=== PATIENT | female | born 1935 | race Caucasian/White ===

== ENCOUNTER → 2016-10-25 13:56 | Outpatient (CLI) | payer MEDICARE ==
[2015-07-25 08:46] VITALS: BMI 34.5
[~2016-10-25 13:56] MED LIST: BAYER CHEWABLE81 MG PO; BRILINTA90 MG PO; CEFTIN250 MG PO; ELAVIL10 MG PO; GLUCOPHAGE500 MG PO; HUMALOG 30100 UNITS/ SC; LANTUS INSULIN10 ML SC; LANTUS SOL100 UNIT/1 SQ; MELATONIN 3 MG1 TAB PO; PROTONIX40 MG PO; SYMLINPEN1000 MCG/M SQ; TENORMIN50 MG PO; TIROSINT75 MCG PO; TRAZODONE HCL50 MG PO; VERELAN180 MG PO; VICTOZA0.6 MG/0.1 SQ; ZOCOR40 MG PO
== END | disposition home or self-care (01) ==
LOC: D.LABREF 13:56
DX: R19.7 Diarrhea, unspecified (principal)

== ENCOUNTER 2017-03-11 08:58 | Outpatient (CLI) | payer MEDICARE ==
[~2017-03-11] VITALS: Ht 157.5 cm; Wt 86.4 kg
--- NOTE | ~2017-03-11 | HEMODYNAMI ---
PATIENT:MAXIMO TIPTON SEPTEMBER MEDICAL RECORD: [id number] : 37 LOCATION:D.CAT ADMISSION DATE: 03/11/17 Generatedon:03/11/201712:20 Patient name: MAXIMO TIPTON Patient #: [id number] SSN: : 1935 Date of study: 03/11/2017 Page: Of Hemodynamic Procedure Report Patient Data Patient Demographics Procedure consent was obtained First Name: MAXIMO Gender: Female Last Name: DANUTA : 1935 Middle Initial: SEPTEMBER Age: 81 year(s) Patient #: [id number] Race: Additional ID: [id number] Contact details [address]: [address] [place] [address] State: [place] City: [place] Zip code: [address] Past Medical History Allergies Allergen Reaction Date Comments Reported Other allergy 07/25/2015 Keven Inhibitors Sulfa drugs 07/25/2015 Penicillins 07/25/2015 Penicillins 03/11/2017 Sulfa drugs 03/11/2017 Admission Admission Data Admission Date: 03/11/2017 Admission Time: 8:58 Procedure Procedure Types Cath Procedure Diagnostic Procedure [facility] w/Coronaries López Insertion PCI Procedure AMI/SVG/ADMINISTRATIVE OFFICE ASSISTANT PTCA or Stent AMI-BMS/MILLER Initial Miscellaneous Procedures Moderate Sedation up to 30 minutes Procedure Description Procedure Date Procedure Date: 03/11/2017 Procedure Start Time: 11:46 Procedure End Time: 12:10 Procedure Staff Name Function Zamzam Samuels RT Monitor German Chaparro RT Scrub Luis Schaffer RN Nurse Tariq Buenrostro MD Performing Physician Franklin Peoples RT Overhead Crane Truck Loader Procedure Data Cath Procedure Fluoroscopy Diagnostic fluoroscopy Total fluoroscopy Time: 1.8 time: 1.8 min min Diagnostic fluoroscopy Total fluoroscopy dose: 711 dose: 711 mGy mGy Contrast Material Contrast Material Type Amount (ml) Isovue 300 102 Entry Location Entry Primary Successful Side Size Upsize Upsize Entry Closure Succes sful Closure Location (Fr) 1 (Fr) 2 (Fr) Remarks Device Remarks Femoral Right 6 Fr Exoseal artery Short Estimated blood loss: 10 ml Diagnostic catheters Device Type Used For End Catheter Placement Cordis 5Fr Pigtail LV Angiography Catheter (MP) Diagnostic Infinity 5Fr Left Coronary JL 3.5 catheter Angiography Cordis 5Fr 3DRC Catheter Right Coronary (MP) Angiography Procedure Complications No complications Procedure Medications Medication Administration Route Dosage Oxygen NC 2 l/min Heparin Flush Bag added to field 2 bags (1000units/500ml NS) 0.9% NaCl I.V. 100 ml/hr Fentanyl I.V. 50 mcg Versed I.V. 1 mg Benadryl I.V. 50 mg Heparin Bolus I.V. 4000 units Integrilin (Bolus I.V. 7.9 ml 2mg/ml) Integrilin (Bolus wasted 2.1 ml 2mg/ml) Plavix P.O. 600 mg Hemodynamics Rest Heart Rate: 78 (bpm) Snapshots Pre Cath Intra NCS Post Cath Vital Signs Time Heart Resp SPO2 etCO2 NIBP (mmHg) Rhythm Pain Sedation Rate (ipm) (%) (mmHg) Status Level (bpm) 11:37:46 78 16 99 0 187/85(138) NSR 0 (11) 10(A) , No pain 11:42:45 76 16 100 22.6 188/83(144) NSR 0 (11) 10(A) , No pain 11:47:42 81 16 97 0 164/68(122) NSR 0 (11) 9(A) , No pain 11:52:35 85 16 94 3.7 168/81(120) NSR 0 (11) 9(A) , No pain 11:57:30 98 18 95 13.5 176/81(128) NSR 0 (11) 9(A) , No pain 12:03:35 118 18 98 27.1 92/40(65) NSR 0 (11) 9(A) , No pain 12:08:34 105 12 99 32.4 Measuring NSR 0 (11) 9(A) , No pain 12:09:39 110 21 97 30.9 198/107(151) NSR 0 (11) 9(A) , No pain Medications Time Medication Route Dose Verified Delivered Reason Notes Effectiveness by by 11:43:04 Oxygen NC 2 Tariq Smith Per physician l/min Chitra Schaffer RN 11:43:14 Heparin Flush added 2 Tariq Luis used for Bag to bags Chitra Schaffer RN procedure (1000units/500ml field NS) 11:43:22 0.9% NaCl I.V. 100 Tariq Smith Per physician ml/hr Chitra Schaffer RN 11:43:31 Fentanyl I.V. 50 Tariq Vargasy for sedation mcg Chitra Schaffer RN 11:43:37 Versed I.V. 1 mg Tariq Smith for sedation Chitra Schaffer RN 11:43:44 Benadryl I.V. 50 mg Tariq Smith for sedation Chitra Schaffer RN 11:53:01 Heparin Bolus I.V. 4000 Tariq Smith for units Chitra Schaffer RN anticoagulation 11:55:22 Integrilin I.V. 7.9 Tariq Smith for (Bolus 2mg/ml) ml Chitra Schaffer RN anticoagulation 11:55:36 Integrilin wasted 2.1 Tariq Smith for (Bolus 2mg/ml) ml Chitra Schaffer RN anticoagulation 11:57:55 Plavix P.O. 600 Tariq Smith for mg Chitra Schaffer RN antiplatelet therapy Procedure Log Time Note 11:20:46 Zamzam Counts RT(R) sent for patient. Start room use. 11:20:47 Time tracking: Regular hours 11:20:52 Plan of Care:Hemodynamics will remain stable., Cardiac rhythm will remain stable., Comfort level will be maintained., Respiratory function will remain adequate., Patient/ family verbilizes understanding of procedure., Procedure tolerated without complication., Recovers from procedure without complications.. 11:25:28 Use device set Femoral Dx 11:25:29 Bag Decanter opened to sterile field. 11:25:29 Acist Syringe opened to sterile field. 11:25:30 Medline Cath Pack opened to sterile field. 11:25:31 St Liam 260cm J .035 wire opened to sterile field. 11:25:32 Acist Hand Control opened to sterile field. 11:25:33 Acist Manifold opened to sterile field. 11:25:37 Tegaderm 4 x 4 opened to sterile field. 11:25:37 Diagnostic Infinity 5Fr Multipack catheter opened to sterile field. 11:25:54 Terumo 6Fr Milford Sheath opened to sterile field. 11:32:02 Patient received from ED to CCL 1 Alert and oriented. Tansferred to table in Supine position. 11:32:04 Correct patient and procedure confirmed by team. 11:32:04 Warm blankets applied, and yobani hugger turned on for patient comfort. 11:32:05 Signed procedure consent form obtained from patient. 11:32:06 ECG and BP/O2 sat monitors applied to patient. 11:32:07 Full Disclosure recording started 11:35:50 Vital chart was started 11:38:53 Baseline sample Acquired. 11:38:56 Rhythm: sinus rhythm 11:39:00 H&P Date Dictated: 03/11/2017 Emergent; H&P N/A. 11:39:02 Pre-op teaching completed and patient verbalized understanding. 11:39:02 Pre-procedure instructions explained to patient. 11:39:08 Family in waiting room. 11:39:10 Patient NPO since Midnight. 11:39:19 Patient allergic to Penicillins 11:39:25 Patient allergic to Sulfa drugs 11:39:27 Is the patient allergic to Iodine/contrast media? No. 11:39:29 Is patient on blood thinner?No 11:40:13 Patient diabetic? No. 11:40:16 Previous problem with sedation/anesthesia? No ? 11:40:17 Snore? Yes 11:40:18 Sleep apnea? No 11:40:19 Deviated septum? No 11:40:20 Sticks out tongue? Yes 11:40:20 Opens mouth fully? Yes 11:40:22 Airway obstruction? Yes ? 11:40:24 Dentures? Yes ? 11:40:27 Pre procedure: right dorsailis pedis pulse 2+ Normal; easily identifiable; not easily obliterated 11:40:33 Patient pain scale 7/10 Chest. 11:41:01 IV patent on arrival in right hand with 0.9% NaCl at O. 11:41:08 Lab results completed and on chart. 11:42:49 Right groin area was prepped with chlora-prep and draped in sterile fashion 11:42:51 Sharps counted by scrub and verified by R.N. 11:42:51 Alarms reviewed by R. N. 11:42:54 Final Timeout: patient, procedure, and site verified with staff and physician. All members of the team are in agreement. 11:42:57 Right groin site verified by team. 11:43:00 Physical assessment completed. ASA score P 2 - A patient with mild systemic disease as per Tariq Buenrostro MD. 11:43:04 Sedation plan: IV Moderate Sedation Medication:Versed, Fentanyl 11:43:04 Oxygen 2 l/min NC was administered by Luis Schaffer RN; Per physician; 11:43:14 Heparin Flush Bag (1000units/500ml NS) 2 bags added to field was administered by Luis Schaffer RN; used for procedure; 11:43:22 0.9% NaCl 100 ml/hr I.V. was administered by Luis Schaffer RN; Per physician; 11:43:31 Fentanyl 50 mcg I.V. was administered by Luis Schaffer RN; for sedation; 11:43:37 Versed 1 mg I.V. was administered by Luis Schaffer RN; for sedation; 11:43:44 Benadryl 50 mg I.V. was administered by Luis Schaffer RN; for sedation; 11:44:12 Procedure started. 11:46:50 Local anesthetic to right femoral artery with Lidocaine 2% by Tariq Buenrostro MD.INITIAL ACCESS ONLY 11:47:02 A 6 Fr Short sheath was inserted into the Right Femoral artery 11:47:11 A Cordis 5Fr Pigtail Catheter (MP) was advanced over the wire and used for LV Angiography. 11:47:36 LV gram done using CAMERON 11:47:40 EF : 40 % 11:47:44 Injector settings: Ml/sec: 10, Volume: 20, 11:47:46 Catheter removed. 11:47:56 A Diagnostic Infinity 5Fr JL 3.5 catheter was advanced over the wire and used for Left Coronary Angiography. 11:48:35 Bare Tree Media BasixCompak Inflation Kit opened to sterile field. 11:48:35 Jones Whisper J 300cm 0.014 guide wire opened to sterile field. 11:49:19 Catheter removed. 11:49:34 A Cordis 5Fr 3DRC Catheter (MP) was advanced over the wire and used for Right Coronary Angiography. 11:50:22 Catheter removed. 11:50:33 Cordis 6FR XB 3.5 guide catheter opened to sterile field. 11:51:26 6 Fr XB 3.5 guide catheter was inserted over the wire 11:52:21 Whisper wire advanced. 11:53:01 Heparin Bolus 4000 units I.V. was administered by Luis Schaffer RN; for anticoagulation; 11:53:23 Inflation Number: 1 A Medtronic Integrity 3.0 X 15 stent was prepped and advanced across the Mid CX. The stent was deployed at 9 VANESSA for 0:03 (min:sec). 11:53:58 Wire removed. 11:53:58 Stent catheter was removed intact over wire. 11:54:00 Guide catheter removed. 11:54:11 Cordis 6Fr Exoseal opened to sterile field. 11:55:22 Integrilin (Bolus 2mg/ml) 7.9 ml I.V. was administered by Luis Schaffer RN; for anticoagulation; 11:55:36 Integrilin (Bolus 2mg/ml) 2.1 ml wasted was administered by Luis Schaffer RN; for anticoagulation; 11:56:20 Sheath removed intact; hemostasis achieved with Exoseal to the Right Femoral artery. 11:56:22 Procedure ended.(Physican Out) 11:57:55 Plavix 600 mg P.O. was administered by Luis Schaffer RN; for antiplatelet therapy; 11:58:02 Fluoroscopy time 01.80 minutes. 11:58:08 Fluoroscopy dose: 711 mGy 11:58:08 Flurop Dose total: 711 11:58:10 Contrast amount:Isovue 300 102ml. 11:58:19 Sharps counted by scrub and verified by R.N. 11:59:21 Insertion/operative site no bleeding no hematoma. 11:59:35 Post-op/insertion site Right Femoral artery dressed using a 4 x 4 and Tegaderm. 11:59:42 Post right femoral artery:stable, clean and dry 11:59:43 Post Procedure Pulses reassessed and unchanged 11:59:46 Post-procedure physical assessment completed. ASA score P 2 - A patient with mild systemic disease as per Tariq Buenrostro MD. 11:59:48 Post procedure rhythm: unchanged. 11:59:51 Estimated blood loss: 10 ml 11:59:52 Post procedure instruction explained to patient.Patient verbalizes understanding. 11:59:53 Patient needs reinforcement of post procedure teaching. 12:00:13 Procedure type changed to Cath procedure, Diagnostic procedure, LHC, LHC w/Coronaries, López Insertion, PCI procedure, AMI/SVG/ADMINISTRATIVE OFFICE ASSISTANT PTCA or Stent, AMI-BMS/MILLER Initial, Miscellaneous Procedures, Moderate Sedation up to 30 minutes 12:00:18 Procedure Complication : No complications 12:00:21 See physician's report for complete and final results. 12:00:52 PERCUTANEOUS ENTRY 19GA needle opened to sterile field. 12:01:02 IV Extension Set opened to sterile field. 12:01:18 Procedure and supply charges have been captured, reviewed, submitted and are correct. 12:04:32 16fr standard lópez inserted no resistance clear yellow urine obtained. 12:06:28 16FR López w/Drainage Bag opened to sterile field. 12:09:56 Vital chart was stopped 12:09:59 Report given to PCU. 12:10:04 Patient transfered to PCU with Bed. 12:10:11 Full Disclosure recording stopped 12:10:11 Procedure ended. 12:10:14 End room use (Document Last) 12:18:40 St Liam Femstop Arch Gold opened to sterile field. 12:18:51 Femstop placed over the right femoral artery at 180 mmHg. Hemostasis achieved. Intervention Summary Intervention Notes Time ActionType Lesion and Equipment Action# Pressure Duration Attributes Used 11:53:23 Place stent Mid CX Medtronic 1 9 00:03 Integrity 3.0 X 15 stent Device Usage Item Name Manufacture Quantity Catalog Hospital Part Current Minimal Lot# / Number Charge Number Stock Stock Serial# Code Acist Acist 1 89381 352080 794702 446258 20 Syringe Medical Systems Inc Bag Decanter Microtek 1 2002S 249549 54498 322857 5 OneSeed Expeditions. Medline Cath Cardinal 1 [id number] 144899 85196 225194 [address] Liam 1 470328 312563 476137 183456 30 260cm J .035 wire Acist Hand Acist 1 73763 384184 465445 295140 5 Control Medical Systems Inc Acist Acist 1 27953 470703 703288 147242 5 AltaRock [employer] Inc Diagnostic Cardinal 1 [id number] 759379 49777 846164 30 Infinity 5Fr Glide Pharma Multipack catheter Tegaderm 4 x 3M 1 1626W 930015 746208 972618 5 4 Terumo 6Fr Terumo 1 GET820 997533 824586 304371 40 Milford Sheath Cordis 5Fr Cardinal 1 090175 5 Pigtail Health Catheter (MP) Diagnostic Cardinal 1 [id number] 680987 271298 788267 5 Infinity 5Fr Health JL 3.5 catheter Jones Jones 1 [id number] 380380 556096 126813 5 Whisper J Vascular 300cm 0.014 guide wire Merit Merit 1 BG4998 206286 782955 668898 15 BasixCompak Medical Inflation Kit Cordis 5Fr Cardinal 1 988837 5 3DRC Health Catheter (MP) Cordis 6FR Cardinal 1 [id number] 242216 885521 465856 2 XB 3.5 guide Health catheter Medtronic Medtronic 1 [id number] 763999 990916 9 [id number] Integrity 3.0 X 15 stent Cordis 6Fr Cardinal 1 EX600 640260 502468 384837 10 Exoseal Health PERCUTANEOUS Cook Medical 1 S53374 248625 361661 5 ENTRY 19GA needle IV Extension Hospira 1 60290-26 459452 82441 913860 5 Set 16FR López Bard 1 [id number] 520157 073365 867998 5 w/Drainage Bag St Liam St Liam 1 F68951 118470 301126 767288 5 Femstop Arch Gold Signature Audit [place] Stage Time Signature Unsigned Intra-Procedure 03/11/2017 Zamzam Samuels 12:10:31 PM Counts RT(R) RT(R) 03/11/2017 12:18:20 PM Intra-Procedure 03/11/2017 Franklin Peoples 12:20:48 PM RT(R) Signatures Monitor : Zamzam Signature : Counts RT Date : Time : [facility] [address] [place], [place] [address]
[2017-03-11 09:52] LABS: BASOPHILS 0.5 % (0-2); EOSINOPHILS 3.7 % (0-7); HEMATOCRIT 43.1 % (36.0-48.0); HEMOGLOBIN 14.2 g/dL (12-16); IMMATURE GRANULOCYTES 0.2 % (0-5); LYMPHOCYTES 35.7 % (15-50); MCH 30.9 pg (26.0-34.0); MCHC 32.9 g/dL (31.0-37.0); MCV 93.7 fL (80.0-100.0); MEAN PLATELET VOLUME 10.5 fL (7.4-10.4); MONOCYTES 11.9 % (2-11); PLATELET COUNT 225 10x3/uL (130-400); RDW 12.8 % (11.5-14.5); WBC 8.4 10x3/uL (4.8-10.8)
[2017-03-11 09:53] LABS: APPEARANCE CLEAR (CLEAR); BILIRUBIN NEGATIVE (NEGATIVE); COLOR STRAW (YELLOW); GLUCOSE 50 mg/dL (NEGATIVE); KETONE NEGATIVE (NEGATIVE); NITRITE NEGATIVE (NEGATIVE); PROTEIN NEGATIVE (NEGATIVE); SPECIFIC GRAVITY 1.005 (1.005-1.020); UROBILINOGEN NORMAL (NORMAL)
[2017-03-11 10:55] LABS: ALBUMIN 3.6 g/dL (3.4-5.0); ALKALINE PHOSPHATASE 43 U/L (46-116); ALT (SGPT) 65 U/L (10-68); BILIRUBIN - TOTAL 0.57 mg/dL (0.2-1.3); CALC OSMOLALITY 284 mosm/kg (275-300); CALCIUM 9.3 mg/dL (8.5-10.1); CARBON DIOXIDE 26.5 mmol/L (21.0-32.0); CHLORIDE - SERUM 102 mmol/L (98-107); CREATININE - SERUM 0.9 mg/dL (0.6-1.3); POTASSIUM - SERUM 4.6 mmol/L (3.5-5.1); PROTEIN - SERUM 7.5 g/dL (6.4-8.2); SODIUM 141 mmol/L (136-145); UREA NITROGEN 11 mg/dL (7-18); eGFR NON AFRICAN AMERICAN 64 mL/min (90-120)
[2017-03-11 10:56] LABS: GLUCOSE 181 mg/dL (74-106)
[2017-03-11 11:09] LABS: CHOL - HDL RATIO 2.3 ratio (2.3-4.1); CHOLESTEROL, TOTAL 119 mg/dL (0-200); CKMB 0.9 U/L (0.0-3.6); CREATINE KINASE 55 UL (21-215); HDL CHOLESTEROL 52 mg/dL (32-96); LDL CHOLESTEROL 48 mg/dL (0-100); LDL-HDL RATIO 0.9 ratio (1.5-3.5); TRIGLYCERIDE 98 mg/dL (30-200)
[2017-03-11 11:10] LABS: TROPONIN-I < 0.017 ng/mL (0.000-0.060)
[2017-03-11 14:37] VITALS: BP 136/61; Ht 157.5 cm; Wt 86.4 kg
[2017-03-11 15:26] LABS: HEMATOCRIT 38.3 % (36.0-48.0); HEMOGLOBIN 12.9 g/dL (12-16)
[2017-03-11] MEDS ORDERED: PROTONIX40 MG PO (17:41)
[2017-03-11] MEDS ORDERED: CARAFATE1 G PO (17:42)
[2017-03-11] MEDS ORDERED: MOBIC7.5 MG PO (17:43)
[2017-03-11] MEDS ORDERED: MELATONIN5 M3 PO (17:50)
[2017-03-11] MEDS ORDERED: MULTIPLE VITAMI1 TA1 PO (18:10)
--- NOTE | 2017-03-11 19:35 | NUR ---
ASSESSMENT COMPLETE, A&O. RESPERTIONS EVEN ON AT 2 LITER VIA NC. IV TO LEFT FOREARM SL, SITE CLEAN AND DRY. DRSG TO RIGHT GROIN C/D/I. DRY BLOOD NOTED TO THIGH AND DRAW SHEET, WHICH IT WAS GIVEN IN REPORT FROM DAY SHIFT NURSE THAT PT HAD PREVIOUSLY HAD ON A FEMSTOP TO RIGHT GROIN DUE TO ACTIVE BLEEDING AFTER CARDIAC CATH. NO ACTIVE BLEEDING NOTED AT THIS TIME, NO SWELLING NOTED, PEDAL PULSES PRESENT. PT DENIES PAIN OR NEEDS, AT BED SIDE.
--- NOTE | 2017-03-11 21:33 | NUR ---
HS MEDS GIVEN WITH FRESH ICE WATER, BS 244, COVERGE GIVEN PER S/S. HS SNACK PROVIDED. PT DENIES PAIN OR NEEDS, BED LOW, CL IN REACH.
[2017-03-11 22:54] VITALS: BP 144/59
--- NOTE | 2017-03-12 | NUR ---
METER SHOP SUPERVISOR AT BED SIDE TO OBTAIN VITALS, WILL CONT TO MONITOR.
--- NOTE | 2017-03-12 02:57 | NUR ---
RESTING WITH EYES CLOSED, RESPERATIONS EVEN, NO S/S DISTRESS NOTED.
[2017-03-12 04:27] VITALS: BP 161/68
[2017-03-12 07:52] VITALS: BP 145/61
--- NOTE | 2017-03-12 09:37 | NUR ---
TELEMETRY SR. SMITH CATH INTACT AND PATENT. CALL LIGHT IN REACH. WILL CONT. PLAN OF CARE.
[2017-03-12 11:59] VITALS: BP 145/61
[2017-03-12] MEDS ORDERED: PLAVIX75 MG PO (12:20)
--- NOTE | 2017-03-12 13:00 | NUR ---
IV AND TELEMETRY DCD. DC PLANS GIVEN. UNDERSTANDING VOICED. ESCORTED TO CAR BY W/C.
--- NOTE | 2017-03-14 14:14 | HP ---
PATIENT: MAXIMO TIPTON BALJINDER MEDICAL RECORD: [id number] ACCOUNT: [id number] LOCATION:RICHARD : 37 ADMISSION DATE: 03/11/17 HISTORY AND PHYSICAL EXAMINATION DIAGNOSES: 1. Unstable angina. 2. Coronary artery disease. 3. Previous percutaneous transluminal coronary angioplasty stent. 4. Hypertension. 5. Insulin-dependent diabetes. HISTORY OF PRESENT ILLNESS: This is a lady who has had previous stents by Dr. Ceja approximately a year and a half ago, who has been having chest pain for the past 2 weeks in an increasing fashion, markedly increasing over the past 2 days. She is having active worsening chest pain now in the Emergency Room. Her EKG, however, has nonspecific ST-T abnormalities, no acute ST elevation. PHYSICAL EXAMINATION: GENERAL APPEARANCE: Well-nourished, well-developed, appears stated age. Level of distress, comfortable. PSYCHIATRIC: Mental status, alert, normal affect. Orientation, oriented to time, place and person. EYES: Lids and conjunctiva, noninjected. No discharge, no pallor. ENT: Lips, teeth, gums, normal dentition. Oropharynx, no cyanosis, no pallor. NECK: Carotid arteries, bilateral normal upstroke, no bruits, no thrills. JUGULAR VEINS: No jugular venous pressure or distention. CERVICAL LYMPH NODES: Nontender, nonenlarged. THYROID: Not enlarged. Nontender. No nodules. LUNGS: Respiratory effort, unlabored. CHEST: Normal curvature. No thoracic deformity. No chest wall tenderness. Percussion, resonant. Auscultation, clear. No wheezes, no rales, no rhonchi. CARDIOVASCULAR: Precordial exam, nondisplaced. No heaves or pericardial thrills. Rate and rhythm, regular. Heart sounds, normal S1, normal S2. No S3, no gallop, no rub. Systolic murmur, not heard. Diastolic murmur, not heard. EXTREMITIES: No cyanosis, no edema. Peripheral pulses, full and equal in all extremities, except as noted. No bruits appreciated. ABDOMEN: Soft, nondistended. Normal aorta. No bruit. Nontender. No masses. Liver, nontender, no hepatomegaly. Spleen, nontender, no splenomegaly. MUSCULOSKELETAL: No joint tenderness. No joint swelling. No erythema. NEUROLOGICAL: Normal gait, normal strength, normal tone. SKIN: Warm and dry. REVIEW OF SYSTEMS: The patient reports easy bruising but reports no swollen glands. The patient reports no fever, no night sweats, no significant weight gain, no significant weight loss. No significant exercise tolerance. The patient reports no dry eyes, no irritation, no vision change. Patient reports no difficulty hearing and no ear pain. Patient reports no frequent nose bleeds or nose and sinus problems. Patient reports on arm pain on exertion. No shortness of breath while lying down. No history of heart murmur. Patient reports no cough, no wheezing or coughing up blood. Patient reports no abdominal pain, no vomiting. Normal appetite. No diarrhea and not vomiting blood. No nausea and no constipation. Patient reports no incontinence. No difficulty urinating. No hematuria. No increased frequency. Patient reports no muscle aches. No weakness, no arthralgias, no back pain. No swelling of the HISTORY AND PHYSICAL [id number] MAXIMO TIPTON BALJINDER extremities. Patient reports no abnormal mole, no jaundice, no rashes. Reports no loss of consciousness. No weakness and no numbness. No seizures, dizziness, or headaches. The patient reports no depression, no sleep disturbance, feeling safe in a relationship and no alcohol abuse. Patient reports on fatigue. Reports no runny nose or sinus pressure. No itching, no hives, and no frequent sneezing. OVERALL IMPRESSION: Increasing angina in an unstable fashion. Most likely she has recurrent hemodynamically significant coronary artery disease. We will proceed with coronary angiography. Further care depends upon findings of the angiography. TRANSINT:[id number] Voice Confirmation ID: [id number] DOCUMENT ID: [id number] ILIANA JARAMILLO MD at 1414 CC: [id number] DICTATION DATE: 03/11/17 1113 RV DETAILER: 03/11/17 1144 DEP CLI 03/12/17 [facility] [address] [id number]
--- NOTE | 2017-03-14 14:14 | OP ---
PATIENT NAME: MAXIMO TIPTON MEDICAL RECORD: [id number] :37 LOCATION:D.CAT ADMISSION DATE: SURGEON: ILIANA JARAMILLO MD DATE OF OPERATION: 03/11/2017 PROCEDURES: 1. PTCA stent to left circumflex. 2. Left heart catheterization. 3. Selective coronary angiography. 4. Left ventriculogram. INDICATION: Angina and coronary artery disease. PROCEDURE IN DETAIL: After informed consent was obtained and after detailed explanation of risks, benefits as well as alternative therapies, the patient elected to proceed with angiogram and angioplasty. The right femoral area was prepped and draped in normal sterile fashion. The right femoral artery was cannulated via modified Seldinger technique with placement of 6-Nigerien sheath. All catheters exchanged through this sheath. FINDINGS: Left ventriculogram was performed in standard 30-degree CAMERON view, reveals global hypokinesis, ejection fraction 40%. SELECTIVE CORONARY ANGIOGRAPHY: 1. Left main showed no significant angiographic disease. 2. Left anterior descending has previously placed stents, these are widely patent; however, there is an area of 70% in-stent restenosis. After this, the vessel is very small caliber. There is a 90% stenosis that is questionable. This vessel is large enough to be stented. 3. Left circumflex has a 75% stenosis in the mid vessel. 4. The right coronary artery has previously placed stents. These are widely patent with no significant restenosis. No disease elsewise. PTCA STENT OF THE LEFT CIRCUMFLEX: The stent used was a 3.0 x 15 mm Integrity. Result was 0% residual stenosis. OVERALL IMPRESSION: Successful percutaneous transluminal coronary angioplasty stent of the left circumflex going from 75% initial stenosis to 0% residual. If the patient continues to have chest pain, would entertain PTCA stent of the small LAD. TRANSINT:[id number] Voice Confirmation ID: [id number] DOCUMENT ID: [id number] ILIANA JARAMILLO MD at 1414 CC: [id number] DICTATION DATE: 03/11/17 1203 GATE SERVICES SUPERVISOR: 03/11/17 1228 DEP CLI 03/12/17 [place] [address]
--- NOTE | 2017-03-14 14:14 | DS ---
PATIENT:MAXIMO WILSON SEPTEMBER :37 MEDICAL RECORD: [id number] DISCHARGE SUMMARY ADMISSION DATE: 03/11/17 DISCHARGE DATE: 03/12/17 DISCHARGE DIAGNOSES: 1. Unstable angina. 2. Coronary artery disease. 3. Percutaneous transluminal coronary angioplasty stent of left circumflex this admission. 4. Hypertension. 5. Hyperlipidemia. HOSPITAL COURSE: Mrs. Wilson presents with unstable anginal symptomatology, found to have significant disease to the left circumflex, underwent successful PTCA stent of the left circumflex, no further anginal symptomatology. She was discharged home with the addition of aspirin and Plavix to her medical regimen and follow up with [facility] in 1 month. TRANSINT:[id number] Voice Confirmation ID: [id number] DOCUMENT ID: [id number] ILIANA JARAMILLO MD at 1414 CC: [id number] DICTATION DATE: 03/12/17 1144 INTERVENTIONIST: 03/12/17 1313 DEP CLI 03/12/17 [address] [place] [address]
== END 2017-03-12 14:00 | disposition home or self-care (01) ==
LOC: D.M2 08:58 → D.ER 08:58 → D.CATH 08:58 → EDSTATUS 11:30 → D.M2 12:20 → D.CATH 03-12 14:00
PROVIDERS: Family Medicine; Internal Medicine Interventional Cardiology
DX: I25.110 Atherosclerotic heart disease of native coronary artery with unstable angina pectoris (principal); Z95.5 Presence of coronary angioplasty implant and graft; I10 Essential (primary) hypertension; E11.9 Type 2 diabetes mellitus without complications; E78.5 Hyperlipidemia, unspecified; Z01.812 Encounter for preprocedural laboratory examination

== ENCOUNTER 2017-08-09 18:31 | Observation (INO) | payer MEDICARE ==
[~2017-08-09] VITALS: Ht 157.5 cm; Wt 48.7 kg
--- NOTE | ~2017-08-09 | DS ---
PATIENT:MAXIMO TIPTON SEPTEMBER :37 MEDICAL RECORD: [id number] DISCHARGE SUMMARY ADMISSION DATE: 08/09/17 DISCHARGE DATE: 08/12/17 DISCHARGE DIAGNOSES: 1. Angina. 2. Coronary artery disease. 3. Percutaneous transluminal coronary angioplasty stent left anterior descending this admission. HOSPITAL COURSE: Mrs. TIPTON presents with unstable angina, found to have significant disease of the LAD, underwent successful PTCA stent of the LAD, was discharged home with the addition of aspirin and Plavix to her medical regimen. We will follow up with [facility] in 1 month. TRANSINT:[id number] Voice Confirmation ID: [id number] DOCUMENT ID: [id number] ILIANA JARAMILLO MD at 0956 CC: [id number] DICTATION DATE: 08/11/17 1145 FILLING ROOM OPERATOR: 08/11/17 1330 DIS IN 08/12/[address] [address]
--- NOTE | ~2017-08-09 | HEMODYNAMI ---
PATIENT:MAXIMO TIPTON SEPTEMBER MEDICAL RECORD: [id number] : 37 LOCATION:[address] ADMISSION DATE: 08/09/17 Generatedon:08/11/201711:50 Patient name: MAXIMO TIPTON Patient #: [id number] SSN: : 1935 Date of study: 08/11/2017 Page: Of Hemodynamic Procedure Report Patient Data Patient Demographics Procedure consent was obtained First Name: MAXIMO Gender: Female Last Name: DANUTA : 1935 Middle Initial: SEPTEMBER Age: 81 year(s) Patient #: [id number] Race: Additional ID: [id number] Contact details [address]: [address] [place] [address] State: [place] City: [place] Zip code: [address] Past Medical History Allergies Allergen Reaction Date Comments Reported Other allergy 07/25/2015 Keven Inhibitors Sulfa drugs 07/25/2015 Penicillins 07/25/2015 Penicillins 03/11/2017 Sulfa drugs 03/11/2017 Other allergy 08/11/2017 PCN,KEVEN Inhibitors, SULFA Admission Admission Data Admission Date: 08/09/2017 Admission Time: 23:11 Room #: 2128 Lab Results Lab Result Date: 08/11/2017 Lab Result Time: 3:53 Biochemistry Name Units Result Min Max BUN mg/dl 17 --(---*)-- 7 18 Creatinine mg/dl 1.1 --(--*-)-- 0.6 1.3 CBC Name Units Result Min Max Hematocrit % 36.1 *-(----)-- 42 54 Hemoglobin g/dl 12 *-(----)-- 13.5 17.5 Procedure Procedure Types Cath Procedure Diagnostic Procedure [facility] w/Coronaries PCI Procedure Coronary Stent Coronary Stent Initial Procedure Description Procedure Date Procedure Date: 08/11/2017 Procedure Start Time: 11:32 Procedure End Time: 11:48 Procedure Staff Name Function Tariq Buenrostro MD Performing Physician Myesha Villalta RT Monitor Franklin Peoples RT Scrub Tello White RN Nurse Procedure Data Cath Procedure Fluoroscopy Diagnostic fluoroscopy Total fluoroscopy Time: 3.3 time: 3.3 min min Diagnostic fluoroscopy Total fluoroscopy dose: 259 dose: 259 mGy mGy Contrast Material Contrast Material Type Amount (ml) Isovue 300 91 Entry Location Entry Primary Successful Side Size Upsize Upsize Entry Closure Zazueta ccessful Closure Location (Fr) 1 (Fr) 2 (Fr) Remarks Device Remarks Radial Right 6 Fr Mechanical artery Short Compression Estimated blood loss: 10 ml Diagnostic catheters Device Type Used For End Catheter Placement DIAGNOSTIC [place] 110cm 5 Procedure Fr catheter ([id number]) Procedure Complications No complications Procedure Medications Medication Administration Route Dosage 0.9% NaCl I.V. 100 ml/hr Oxygen etCO2 Nasal cannula 2 l/min Heparin Flush Bag added to field 2 bags (1000units/500ml NS) Lidocaine 2% added to field 20 Radial Cocktail added to field 1 syringe (Verapomil 2mg/Nitro 400mcg/Heparin 1500units) Versed I.V. 1 mg Fentanyl I.V. 50 mcg Radial Cocktail I.A. 1 syringe (Verapomil 2mg/Nitro 400mcg/Heparin 1500units) Heparin Bolus I.V. 4000 units Plavix P.O. 75 mg Hemodynamics Rest HGB: 12 (g/dl) Heart Rate: 93 (bpm) Snapshots Pre Cath Intra NCS Post Cath Vital Signs Time Heart Resp SPO2 etCO2 NIBP (mmHg) Rhythm Pain Sedation Rate (ipm) (%) (mmHg) Status Level (bpm) 11:16:17 98 18 93 0 158/87(127) NSR 0 (11) 10(A) , No pain 11:20:57 94 16 98 19.6 162/85(123) NSR 0 (11) 10(A) , No pain 11:25:42 89 14 98 12.8 158/76(126) NSR 0 (11) 10(A) , No pain 11:30:23 92 13 99 16.5 151/81(113) NSR 0 (11) 10(A) , No pain 11:36:15 89 20 98 30.1 153/75(108) NSR 0 (11) 9(A) , No pain 11:40:49 93 15 95 33.9 149/85(106) NSR 0 (11) 9(A) , No pain 11:45:22 93 17 97 34.6 151/84(120) NSR 0 (11) 10(A) , No pain 11:49:58 90 15 98 33.9 149/82(115) NSR 0 (11) 10(A) , No pain Medications Time Medication Route Dose Verified Delivered Reason Not es Effectiveness by by 11:13:50 0.9% NaCl I.V. 100 Tello Tello Per physician ml/hr Christopher White RN RN 11:14:01 Oxygen etCO2 2 l/min Tello Tello Per physician Nasal Christopher White cannula RN RN 11:14:13 Heparin Flush added 2 bags Tello Tello used for Bag to Lorchito White procedure (1000units/500ml field RN RN NS) 11:14:24 Lidocaine 2% added 20ml Tello Tello for local to vial Lilianigan Christopher anesthetic field RANDHAWA RN 11:14:34 Radial Cocktail added 1 Tello Tello used for (Verapomil to syringe Lorigan Lorigan procedure 2mg/Nitro RN RN 400mcg/Heparin 1500units) 11:30:45 Versed I.V. 1 mg Tello Tello for sedation Christopher White RN RN 11:30:53 Fentanyl I.V. 50 mcg Tello Tello for sedation Christopher White RN RN 11:34:10 Radial Cocktail I.A. 1 Tello Tello for (Verapomil syringe Lorigan Lorigan vasodilation 2mg/Nitro RN RN 400mcg/Heparin 1500units) 11:40:06 Heparin Bolus I.V. 4000 Tello Tello for units Christopher White anticoagulation RN RN 11:46:58 Plavix P.O. 75 mg Tello Tello for Christopher White antiplatelet RN RN therapy Procedure Log Time Note 10:44:29 Informed consent obtained and on chart 10:44:52 Diagnostic Cath status Elective 10:44:53 Tello White RN sent for patient. Start room use. 10:44:54 Time tracking: Regular hours (M-F 7:00 - 5:00) 10:44:56 Plan of Care:Hemodynamics will remain stable., Cardiac rhythm will remain stable., Comfort level will be maintained., Respiratory function will remain adequate., Patient/ family verbilizes understanding of procedure., Procedure tolerated without complication., Recovers from procedure without complications.. 10:46:32 Lab Result : Hemoglobin 12 g/dl 10:46:32 Lab Result : Hematocrit 36.1 % 10:46:32 Lab Result : BUN 17 mg/dl 10:46:32 Lab Result : Creatinine 1.1 mg/dl 10:46:44 H&P Date Dictated: 08/10/2017 Within 30 days and on chart.. 11:01:06 Patient received from Med II to CCL 3 Alert and oriented. Tansferred to table in Supine position. 11:01:07 Warm blankets applied, and yobani hugger turned on for patient comfort. 11:01:07 Correct patient and procedure confirmed by team. 11:01:08 ECG and BP/O2 sat monitors applied to patient. 11:01:09 Pre-procedure instructions explained to patient. 11:01:09 Pre-op teaching completed and patient verbalized understanding. 11:01:10 Family in waiting room. 11:01:11 Patient NPO since Midnight. 11:13:50 0.9% NaCl 100 ml/hr I.V. was administered by Tello White RN; Per physician; 11:14:01 Oxygen 2 l/min etCO2 Nasal cannula was administered by Tello White RN; Per physician; 11:14:13 Heparin Flush Bag (1000units/500ml NS) 2 bags added to field was administered by Tello White RN; used for procedure; 11:14:24 Lidocaine 2% 20ml vial added to field was administered by Tello White RN; for local anesthetic; 11:14:34 Radial Cocktail (Verapomil 2mg/Nitro 400mcg/Heparin 1500units) 1 syringe added to field was administered by Tello White RN; used for procedure; 11:14:38 Vital chart was started 11:18:05 Patient allergic to Other allergyPCN,KEVEN Inhibitors, SULFA 11:18:32 Baseline sample Acquired. 11:18:36 Rhythm: sinus rhythm 11:18:38 Full Disclosure recording started 11:18:41 Is the patient allergic to Iodine/contrast media? No. 11:18:46 Is patient on blood thinner?No 11:18:48 Patient diabetic? Yes. 11:18:49 If diabetic: On Metformin? Yes 11:18:55 If on Metformin: Last Dose? 08/07/2017 11:19:00 Previous problem with sedation/anesthesia? No ? 11:19:01 Snore? Yes 11:19:02 Sleep apnea? Yes 11:19:03 Deviated septum? No 11:19:04 Opens mouth fully? Yes 11:19:04 Sticks out tongue? Yes 11:19:08 Airway obstruction? No ? 11:19:10 Dentures? No ? 11:19:13 Modified Jake's test Ulnar < 7 seconds 11:19:15 Patient pain scale 0/10 ?. 11:19:26 IV patent on arrival in left forearm with 0.9% NaCl at [facility]. 11:19:32 Lab results completed and on chart. 11:19:35 Right Radial & Right Groin area was prepped with chlora-prep and draped in sterile fashion 11:19:36 Alarms reviewed by R. N. 11:19:36 Sharps counted by scrub and verified by R.N. 11:19:43 Use device set Radial Dx or PCI 11:19:44 ACIST Syringe (56851) opened to sterile field. 11:19:45 ACIST Hand Control (34149) opened to sterile field. 11:19:46 ACIST Manifold (72021) opened to sterile field. 11:19:48 Tegaderm 4 x 4 (1626W) opened to sterile field. 11:19:50 Bag Decanter (2002S) opened to sterile field. 11:19:50 Medline Cath Pack ([id number]) opened to sterile field. 11:19:51 SHEATH 6FR Slender ([id number]) opened to sterile field. 11:19:52 DIAGNOSTIC WIRE .035 260cm J wire (072488) opened to sterile field. 11:26:02 Zero performed for pressure channel P1 11:30:18 --------ALL STOP TIME OUT------ 11:30:19 Final Timeout: patient, procedure, and site verified with staff and physician. All members of the team are in agreement. 11:30:21 Right Radial & Right Groin site verified by team. 11:30:24 Physical assessment completed. ASA score P 2 - A patient with mild systemic disease as per Tariq Buenrostro MD. 11:30:27 Sedation plan: IV Moderate Sedation Medication:Versed, Fentanyl 11:30:45 Versed 1 mg I.V. was administered by Tello White RN; for sedation; 11:30:53 Fentanyl 50 mcg I.V. was administered by Tello White RN; for sedation; 11:31:43 Procedure started. 11:32:01 Local anesthetic to right radial artery with Lidocaine 2% by Tariq Buenrostro MD.INITIAL ACCESS ONLY 11:33:28 A 6 Fr Short sheath was inserted into the Right Radial artery 11:34:01 A DIAGNOSTIC [place] 110cm 5 Fr catheter ([id number]) was advanced over the wire and used for Procedure. 11:34:10 Radial Cocktail (Verapomil 2mg/Nitro 400mcg/Heparin 1500units) 1 syringe I.A. was administered by Tello White RN; for vasodilation; 11:34:25 LV gram done using CAMERON 11:34:27 Injector settings: Ml/sec: 5, Volume: 15, 11:35:01 EF : 55 % 11:36:18 LCA angiography performed. 11:36:48 RCA angiography performed. 11:36:59 Catheter exchanged over wire. 11:37:10 INFLATOR Merit BasixCompak (EF7791) opened to sterile field. 11:37:14 GUIDE 6FR EBU 3.0 catheter ([id number]) opened to sterile field. 11:38:40 6 Fr EBU 3 guide catheter was inserted over the wire 11:39:34 CHOICE PT Extra Support 182cm wire ([id number]) opened to sterile field. 11:39:48 CHOICE ES 182 wire advanced. 11:40:06 Heparin Bolus 4000 units I.V. was administered by Tello White RN; for anticoagulation; 11:40:24 Wire advanced across lesion. 11:42:07 Place stent Inflation Number: 1 A ROXY RX 2.0 x 15 stent ([id number]) was prepped and advanced across the Mid LAD. The stent was deployed at 15 VANESSA for 0:10 (min:sec). 11:42:52 Stent catheter was removed intact over wire. 11:42:53 Wire removed. 11:42:53 Guide catheter removed. 11:44:07 Sheath removed intact; hemostasis achieved with Mechanical Compression to the Right Radial artery. 11:44:08 Procedure ended.(Physican Out) 11:44:19 Fluoroscopy time 03.30 minutes. 11:44:25 Fluoroscopy dose: 259 mGy 11:44:25 Flurop Dose total: 259 11:44:30 Contrast amount:Isovue 300 91ml. 11:44:44 Sharps counted by scrub and verified by R.N. 11:44:52 Post-procedure physical assessment completed. ASA score P 2 - A patient with mild systemic disease as per Tariq Buenrostro MD. 11:44:54 Post procedure rhythm: unchanged. 11:44:56 Estimated blood loss: 10 ml 11:44:57 Post procedure instruction explained to patient.Patient verbalizes understanding. 11:44:58 Patient needs reinforcement of post procedure teaching. 11:46:08 TR BAND Standard ([id number]) opened to sterile field. 11:46:15 TR band inflated with 12cc of air. 11:46:46 Procedure type changed to Cath procedure, Diagnostic procedure, LHC, LHC w/Coronaries, PCI procedure, Coronary Stent, Coronary Stent Initial 11:46:58 Plavix 75 mg P.O. was administered by Tello White RN; for antiplatelet therapy; 11:48:37 Procedure and supply charges have been captured, reviewed, submitted and are correct. 11:48:40 Procedure Complication : No complications 11:48:43 Vital chart was stopped 11:48:45 See physician's report for complete and final results. 11:48:49 Report given to PCU. 11:48:51 Patient transfered to PCU with Bed. 11:48:53 Procedure ended. 11:48:53 Full Disclosure recording stopped 11:48:56 End room use (Document Last) Intervention Summary Intervention Notes Time ActionType Lesion and Equipment Used Action# Pressure Duration Attributes 11:42:07 Place stent Mid LAD ROXY RX 2.0 x 1 15 00:10 15 stent ([id number]) Device Usage Item Name Manufacture Quantity Catalog Number Hospital Part Current M inimal Lot# / Charge Number Stock Stock Serial# Code ACIST Syringe Acist 1 65499 830952 043321 275440 2 0 (14478) Medical Systems Inc ACIST Hand Acist 1 20909 568779 989157 128880 5 Control Medical (02996) Systems Inc ACIST Manifold Acist 1 28096 064619 705338 529035 5 (47488) Medical Systems Inc Tegaderm 4 x 4 3M 1 1626W 475269 105262 018071 5 (1626W) Bag Decanter Microtek 1 2001S 553821 45098 636392 5 (2001S) Medical Inc. Medline Cath Cardinal 1 [id number] 771759 05053 343977 5 [facility] ([id number]) SHEATH 6FR Terumo 1 [id number] 107761 940570 079850 4 0 Slender ([id number]) DIAGNOSTIC St Liam 1 260444 081758 927541 355351 3 0 WIRE .035 260cm J wire (321693) DIAGNOSTIC Terumo 1 40-1780 059543 929780 015213 5 [place] 110cm 5 Fr catheter (921179) INFLATOR Merit Merit 1 SI7774 783113 596263 710267 1 5 [place] (WR5064) GUIDE 6FR EBU Medtronic 1 [id number] 271820 89854 434880 0 3.0 catheter ([id number]) CHOICE PT [place] 1 [id number] 186121 326352 595165 5 Extra Support Scientific 182cm wire ([id number]) ROXY RX 2.0 x Medtronic 1 [id number] 418032 1018555 434775 5 [id number] 15 stent ([id number]) TR BAND Terumo 1 [id number] 912931 998105 875631 4 0 Standard ([id number]) Signature Audit [place] Stage Time Signature Unsigned Intra-Procedure 08/11/2017 Myesha Villalta 11:50:44 AM RT(R) Signatures Monitor : Myesha Villalta Signature : RT Date : Time : [facility] [address] [place] [address]
--- NOTE | ~2017-08-09 | CN ---
PATIENT NAME:MAXIMO WILSON MEDICAL RECORD: [id number] : 37 LOCATION:[address]2128 ADMIT DATE: 08/09/17 ACCOUNT: [id number] CONSULTING PHYSICIAN: ILIANA JARAMILLO MD REFERRING PHYSICIAN: ZORA GU DO DATE OF CONSULTATION: 08/10/2017 CARDIOLOGY CONSULTATION DIAGNOSES: 1. Unstable angina. 2. Coronary artery disease. 3. Previous multivessel PTCA stent, last being in February 2017. 4. Diabetes. 5. Hypertension. 6. Hyperlipidemia. HISTORY OF PRESENT ILLNESS: Mrs. Wilson presents with anginal symptomatology since Friday. She continues to have episodes of chest pain. Her EKG has nonspecific ST-T abnormalities in the lateral leads. PHYSICAL EXAMINATION: GENERAL APPEARANCE: Well-nourished, well-developed, appears stated age. Level of distress, comfortable. PSYCHIATRIC: Mental status, alert, normal affect. Orientation, oriented to time, place and person. EYES: Lids and conjunctiva, noninjected. No discharge, no pallor. ENT: Lips, teeth, gums, normal dentition. Oropharynx, no cyanosis, no pallor. NECK: Carotid arteries, bilateral normal upstroke, no bruits, no thrills. JUGULAR VEINS: No jugular venous pressure or distention. CERVICAL LYMPH NODES: Nontender, nonenlarged. THYROID: Not enlarged. Nontender. No nodules. LUNGS: Respiratory effort, unlabored. CHEST: Normal curvature. No thoracic deformity. No chest wall tenderness. Percussion, resonant. Auscultation, clear. No wheezes, no rales, no rhonchi. CARDIOVASCULAR: Precordial exam, nondisplaced. No heaves or pericardial thrills. Rate and rhythm, regular. Heart sounds, normal S1, normal S2. No S3, no gallop, no rub. Systolic murmur, not heard. Diastolic murmur, not heard. EXTREMITIES: No cyanosis, no edema. Peripheral pulses, full and equal in all extremities, except as noted. No bruits appreciated. ABDOMEN: Soft, nondistended. Normal aorta. No bruit. Nontender. No masses. Liver, nontender, no hepatomegaly. Spleen, nontender, no splenomegaly. MUSCULOSKELETAL: No joint tenderness. No joint swelling. No erythema. NEUROLOGICAL: Normal gait, normal strength, normal tone. SKIN: Warm and dry. REVIEW OF SYSTEMS: The patient reports easy bruising but reports no swollen glands. The patient reports no fever, no night sweats, no significant weight gain, no significant weight loss. No significant exercise tolerance. The patient reports no dry eyes, no irritation, no vision change. Patient reports no difficulty hearing and no ear pain. Patient reports no frequent nose bleeds or nose and sinus problems. Patient reports on arm pain on exertion. No shortness of breath while lying down. No history of heart murmur. Patient reports no cough, no wheezing or coughing up blood. Patient reports no abdominal pain, no vomiting. Normal appetite. No diarrhea and not vomiting CONSULT REPORT [id number] MAXIMO WILSON blood. No nausea and no constipation. Patient reports no incontinence. No difficulty urinating. No hematuria. No increased frequency. Patient reports no muscle aches. No weakness, no arthralgias, no back pain. No swelling of the extremities. Patient reports no abnormal mole, no jaundice, no rashes. Reports no loss of consciousness. No weakness and no numbness. No seizures, dizziness, or headaches. The patient reports no depression, no sleep disturbance, feeling safe in a relationship and no alcohol abuse. Patient reports on fatigue. Reports no runny nose or sinus pressure. No itching, no hives, and no frequent sneezing. OVERALL IMPRESSION: Chest pain compatible with angina in a patient with a past history of multivessel coronary artery disease. Most likely, she has recurrent hemodynamically significant coronary artery disease. We will proceed with coronary angiography. Further care depends upon findings of the angiography. TRANSINT:[id number] Voice Confirmation ID: [id number] DOCUMENT ID: [id number] ILIANA JARAMILLO MD at 0956 CC: [id number] DICTATION DATE: 08/10/17 1359 CLAIM ANALYST: 08/10/17 1835 DIS IN 08/12/17 [id number] [place] [address]
--- NOTE | ~2017-08-09 | OP ---
PATIENT NAME: MAXIMO TIPTON MEDICAL RECORD: [id number] :37 LOCATION:D[address]M2 [address].2128 ADMISSION DATE:08/09/17 SURGEON: ILIANA JARAMILLO MD DATE OF OPERATION: 08/11/2017 PROCEDURES: 1. PTCA stent LAD. 2. Left heart catheterization. 3. Selective angiography. 4. Left ventriculogram. INDICATION: Angina and coronary artery disease. PROCEDURE PERFORMED: After informed consent was obtained and after a detailed description of risks, benefits as well as alternative therapies, the patient elected to proceed with angiogram and angioplasty. The right radial area was prepped and draped in normal sterile fashion. Right radial artery was cannulated via modified Seldinger technique with placement of 6-Panamanian sheath. All catheters exchanged through this sheath. FINDINGS: Left ventriculogram was performed in standard 30-degree CAMERON view, reveals good cardiac wall motion throughout all segments. Overall ejection fraction estimated 60%. SELECTIVE CORONARY ANGIOGRAPHY: 1. Left main showed no significant angiographic disease. 2. Left anterior descending has previously placed stents, these are widely patent with no significant restenosis. However, there is 80% stenosis past the previously placed stent. 3. Left circumflex has moderate irregularities, but no flow-limiting stenosis. 4. Right coronary artery has moderate irregularities, but no flow-limiting stenosis. SALES AND MARKETING EXECUTIVE STENT OF THE LAD: The stent used distal to the previously placed stents was a 2.0 x 15 mm Alo taken to 13 atmospheres. Result was 0% residual stenosis. OVERALL IMPRESSION: Successful percutaneous transluminal coronary angioplasty stent of the left anterior descending going from 80% initial stenosis to 0% residual. TRANSINT:[id number] Voice Confirmation ID: [id number] DOCUMENT ID: [id number] ILIANA JARAMILLO MD at 0956 CC: [id number] DICTATION DATE: 08/11/17 1146 REVIEW TRAINER: 08/11/17 1306 DIS IN 08/12/17 [id number] [place] [address]
[~2017-08-09 18:31] MED LIST changes: +CARAFATE1 G PO; +MELATONIN5 M3 PO; +MOBIC7.5 MG PO; +MULTIPLE VITAMI1 TA1 PO; +PLAVIX75 MG PO
[2017-08-09 19:06] LABS: BASOPHILS 0.4 % (0-2); HEMATOCRIT 40.2 % (36.0-48.0); HEMOGLOBIN 14.1 g/dL (12-16); IMMATURE GRANULOCYTES 0.3 % (0-5); LYMPHOCYTES 36.2 % (15-50); MCH 32.1 pg (26.0-34.0); MCHC 35.1 g/dL (31.0-37.0); MCV 91.6 fL (80.0-100.0); MEAN PLATELET VOLUME 10.7 fL (7.4-10.4); MONOCYTES 10.6 % (2-11); NEUTROPHILS 51.5 % (40-80); PLATELET COUNT 266 10x3/uL (130-400); RBC 4.39 10x6/uL (4.00-5.40); WBC 10.7 10x3/uL (4.8-10.8)
[2017-08-09 19:27] LABS: ALBUMIN 3.5 g/dL (3.4-5.0); ALKALINE PHOSPHATASE 50 U/L (46-116); ALT (SGPT) 24 U/L (10-68); BILIRUBIN - TOTAL 0.47 mg/dL (0.2-1.3); CALC OSMOLALITY 280 mosm/kg (275-300); CALCIUM 9.3 mg/dL (8.5-10.1); CHLORIDE - SERUM 100 mmol/L (98-107); CREATININE - SERUM 1.2 mg/dL (0.6-1.3); GLUCOSE 234 mg/dL (74-106); POTASSIUM - SERUM 4.4 mmol/L (3.5-5.1); PROTEIN - SERUM 7.4 g/dL (6.4-8.2); SODIUM 136 mmol/L (136-145); UREA NITROGEN 16 mg/dL (7-18); eGFR NON AFRICAN AMERICAN 46 mL/min (90-120)
[2017-08-09 19:38] LABS: CHOL - HDL RATIO 5.6 ratio (2.3-4.1); CHOLESTEROL, TOTAL 264 mg/dL (0-200); CKMB 0.4 U/L (0.0-3.6); CREATINE KINASE 48 UL (21-215); HDL CHOLESTEROL 47 mg/dL (32-96); LDL CHOLESTEROL 165 mg/dL (0-100); LDL-HDL RATIO 3.5 ratio (1.5-3.5); TRIGLYCERIDE 262 mg/dL (30-200); TROPONIN-I < 0.017 ng/mL (0.000-0.060)
[2017-08-10 01:36] VITALS: BP 107/62; BMI 34.8
[2017-08-10 04:30] VITALS: BP 154/70
[2017-08-10 08:56] LABS: BASOPHILS 0.3 % (0-2); EOSINOPHILS 0.9 % (0-7); HEMATOCRIT 40.8 % (36.0-48.0); HEMOGLOBIN 13.8 g/dL (12-16); IMMATURE GRANULOCYTES 0.2 % (0-5); LYMPHOCYTES 28.7 % (15-50); MCH 31.4 pg (26.0-34.0); MCHC 33.8 g/dL (31.0-37.0); MCV 92.7 fL (80.0-100.0); MEAN PLATELET VOLUME 10.2 fL (7.4-10.4); MONOCYTES 13.5 % (2-11); NEUTROPHILS 56.4 % (40-80); PLATELET COUNT 259 10x3/uL (130-400); RDW 13.2 % (11.5-14.5); WBC 9.7 10x3/uL (4.8-10.8)
[2017-08-10 09:10] LABS: ALBUMIN 3.8 g/dL (3.4-5.0); ANION GAP 16.2 mmol/L (8-16); BILIRUBIN - TOTAL 0.53 mg/dL (0.2-1.3); CALCIUM 9.4 mg/dL (8.5-10.1); CARBON DIOXIDE 26.3 mmol/L (21.0-32.0); CREATININE - SERUM 1.2 mg/dL (0.6-1.3); POTASSIUM - SERUM 4.5 mmol/L (3.5-5.1); PROTEIN - SERUM 7.4 g/dL (6.4-8.2)
[2017-08-10 09:22] LABS: CKMB 0.4 U/L (0.0-3.6); CREATINE KINASE 62 UL (21-215)
[2017-08-10 09:23] LABS: TROPONIN-I < 0.017 ng/mL (0.000-0.060)
[2017-08-10 09:27] VITALS: BP 157/89
[2017-08-10 10:14] VITALS: Ht 157.5 cm; Wt 48.7 kg
[2017-08-10 10:48] LABS: CREATINE KINASE 76 UL (21-215); TROPONIN-I < 0.017 ng/mL (0.000-0.060)
[2017-08-10 12:09] VITALS: BP 143/75
[2017-08-10 15:05] VITALS: BP 121/59
[2017-08-10 15:55] LABS: ANION GAP 16.4 mmol/L (8-16); CARBON DIOXIDE 23.1 mmol/L (21.0-32.0); CREATININE - SERUM 1.1 mg/dL (0.6-1.3); POTASSIUM - SERUM 4.5 mmol/L (3.5-5.1)
[2017-08-10 16:13] LABS: BASOPHILS 0.4 % (0-2); EOSINOPHILS 0.7 % (0-7); IMMATURE GRANULOCYTES 0.2 % (0-5); LYMPHOCYTES 24.4 % (15-50); MCH 31.6 pg (26.0-34.0); MCHC 34.2 g/dL (31.0-37.0); MCV 92.5 fL (80.0-100.0); MEAN PLATELET VOLUME 10.4 fL (7.4-10.4); MONOCYTES 12.1 % (2-11); NEUTROPHILS 62.2 % (40-80); PLATELET COUNT 243 10x3/uL (130-400); RBC 4.11 10x6/uL (4.00-5.40); RDW 13.2 % (11.5-14.5); WBC 8.9 10x3/uL (4.8-10.8)
[2017-08-10 18:05] LABS: CKMB 0.7 U/L (0.0-3.6); CREATINE KINASE 98 UL (21-215)
[2017-08-10 18:09] LABS: TROPONIN-I < 0.017 ng/mL (0.000-0.060)
[2017-08-10 20:00] VITALS: BP 111/60
[2017-08-11] VITALS: BP 142/69
[2017-08-11 04:00] VITALS: BP 118/66
[2017-08-11 04:36] LABS: BASOPHILS 0.2 % (0-2); EOSINOPHILS 1.5 % (0-7); HEMATOCRIT 36.1 % (36.0-48.0); IMMATURE GRANULOCYTES 0.2 % (0-5); LYMPHOCYTES 22.7 % (15-50); MCH 31.1 pg (26.0-34.0); MCHC 33.2 g/dL (31.0-37.0); MCV 93.5 fL (80.0-100.0); MONOCYTES 14.4 % (2-11); PLATELET COUNT 217 10x3/uL (130-400); RBC 3.86 10x6/uL (4.00-5.40); RDW 13.3 % (11.5-14.5); WBC 8.4 10x3/uL (4.8-10.8)
[2017-08-11 05:00] LABS: ALBUMIN 3.1 g/dL (3.4-5.0); ANION GAP 14.2 mmol/L (8-16); BILIRUBIN - TOTAL 0.47 mg/dL (0.2-1.3); CALCIUM 8.6 mg/dL (8.5-10.1); CARBON DIOXIDE 24.3 mmol/L (21.0-32.0); CREATININE - SERUM 1.1 mg/dL (0.6-1.3); POTASSIUM - SERUM 4.5 mmol/L (3.5-5.1); PROTEIN - SERUM 6.7 g/dL (6.4-8.2)
[2017-08-11 08:25] VITALS: BP 140/70
[2017-08-11 11:02] VITALS: BP 126/66
[2017-08-11 16:23] VITALS: BP 136/79
[2017-08-11 20:00] VITALS: BP 133/60
[2017-08-12] VITALS: BP 134/62
[2017-08-12 04:00] VITALS: BP 147/68
[2017-08-12 05:21] LABS: BASOPHILS 0.5 % (0-2); EOSINOPHILS 1.3 % (0-7); HEMOGLOBIN 12.2 g/dL (12-16); IMMATURE GRANULOCYTES 0.3 % (0-5); LYMPHOCYTES 32.6 % (15-50); MCV 93.9 fL (80.0-100.0); MEAN PLATELET VOLUME 10.4 fL (7.4-10.4); NEUTROPHILS 53.3 % (40-80); PLATELET COUNT 229 10x3/uL (130-400); RBC 3.94 10x6/uL (4.00-5.40); RDW 12.9 % (11.5-14.5); WBC 7.6 10x3/uL (4.8-10.8)
[2017-08-12 05:24] LABS: ANION GAP 8.9 mmol/L (8-16); CALCIUM 8.7 mg/dL (8.5-10.1); CARBON DIOXIDE 28.3 mmol/L (21.0-32.0); CREATININE - SERUM 1.1 mg/dL (0.6-1.3); POTASSIUM - SERUM 4.2 mmol/L (3.5-5.1)
[2017-08-12 08:07] VITALS: BP 125/54
[2017-08-12] MEDS ORDERED: PLAVIX75 MG PO (09:47)
[2017-08-12 10:46] VITALS: BP 130/56
== END 2017-08-12 13:31 | disposition home or self-care (01) ==
LOC: D.ER 18:31 → D.EDHOLD 23:11 → D.M2 23:11 → OBSVTIME 23:11 → D.M2 23:43
PROVIDERS: Family Medicine; Internal Medicine Interventional Cardiology
DX: I25.110 Atherosclerotic heart disease of native coronary artery with unstable angina pectoris (principal); Z95.5 Presence of coronary angioplasty implant and graft; I10 Essential (primary) hypertension; E11.9 Type 2 diabetes mellitus without complications; E78.5 Hyperlipidemia, unspecified
CPT/HCPCS: 93458; C9600

== ENCOUNTER 2018-10-25 06:47 | Outpatient (CLI) | payer MEDICARE ==
--- NOTE | ~2018-10-25 | HEMODYNAMI ---
PATIENT:MAXIMO TIPTON SEPTEMBER MEDICAL RECORD: [id number] : 37 LOCATION:[facility] D.2111 ADMISSION DATE: 10/25/18 Generatedon:10/25/201810:56 Patient name: MAXIMO TIPTON Patient #: [id number] SSN: : 1935 Date of study: 10/25/2018 Page: Of Hemodynamic Procedure Report Patient Data Patient Demographics Procedure consent was obtained First Name: MAXIMO Gender: Female Last Name: DANUTA : 1935 [facility] Initial: SEPTEMBER Age: 82 year(s) Patient #: [id number] Race: Additional ID: [id number] Contact details [address]: [address] [place] [address] State: [place] City: [place] Zip code: [address] Past Medical History Allergies Allergen Reaction Date Comments Reported Other allergy 07/25/2015 Keven Inhibitors Sulfa drugs 07/25/2015 Penicillins 07/25/2015 Penicillins 03/11/2017 Sulfa drugs 03/11/2017 Other allergy 08/11/2017 PCN,KEVEN Inhibitors, SULFA Admission Admission Data Admission Date: 10/25/2018 Admission Time: 8:13 Room #: D.2111 Lab Results Lab Result Date: 10/25/2018 Lab Result Time: 0:00 Biochemistry Name Units Result Min Max BUN mg/dl 17 --(---*)-- 7 18 Creatinine mg/dl 1 --(--*-)-- 0.6 1.3 CBC Name Units Result Min Max Hemoglobin g/dl 14.7 --(-*--)-- 13.5 17.5 Procedure Procedure Types Cath Procedure Diagnostic Procedure LHC LHC w/Coronaries FFR/IVUS FFR Initial Sedation Charges Moderate Sedation up to 15 minutes PCI Procedure Coronary Stent Coronary Stent Initial x2 Procedure Description Procedure Date Procedure Date: 10/25/2018 Procedure Start Time: 10:25 Procedure End Time: 10:52 Procedure Staff Name Function Tariq Buenrostro MD Performing Physician Luis Schaffer RN Nurse Franklin Peoples RT Scrub Lauren Lopez RT Monitor Procedure Data Cath Procedure Fluoroscopy Diagnostic fluoroscopy Total fluoroscopy Time: 7.3 time: 7.3 min min Diagnostic fluoroscopy Total fluoroscopy dose: 888 dose: 888 mGy mGy Contrast Material Contrast Material Type Amount (ml) Isovue 370 158 Entry Location Entry Primary Successful Side Size Upsize Upsize Entry Closure Succes sful Closure Location (Fr) 1 (Fr) 2 (Fr) Remarks Device Remarks Femoral Right 5 Fr 6 Fr Exoseal artery Short Estimated blood loss: 5 ml Diagnostic catheters Device Type Used For End Catheter Placement MULTIPACK Pigtail 5 Fr LV Angiography catheter MULTIPACK JL 4.0 5Fr Left Coronary catheter Angiography MULTIPACK 3DRC 5Fr Right Coronary catheter Angiography Procedure Complications No complications Procedure Medications Medication Administration Route Dosage Oxygen etCO2 Nasal cannula 2 l/min Heparin Flush Bag added to field 2 bags (1000units/500ml NS) 0.9% NaCl I.V. 100 ml/hr Lidocaine 2% added to field 20 Heparin Bolus I.V. 4000 units Integrilin (Bolus I.V. 7.3 ml 2mg/ml) Integrilin (Bolus wasted 2.7 ml 2mg/ml) Lopressor I.V. 5 mg Hemodynamics Rest HGB: 14.7 (g/dl) Heart Rate: 94 (bpm) Pressure Samples Time Site Value (mmHg) Purpose Heart Use Rate(bpm) 10:27 LV 154/77,78 Snapshot 93 Snapshots Pre Cath Intra NCS Post Cath Vital Signs Time Heart Resp SPO2 etCO2 NIBP (mmHg) Rhythm Pain Sedation Rate (ipm) (%) (mmHg) Status Level (bpm) 10:15:57 85 17 93 0 138/67(101) NSR 0 (11) 9(A) , No pain 10:20:13 94 17 93 0 144/74(120) NSR 0 (11) 9(A) , No pain 10:24:27 92 17 97 32.3 151/74(106) NSR 0 (11) 9(A) , No pain 10:28:51 93 17 100 29.2 154/73(113) NSR 0 (11) 9(A) , No pain 10:33:13 99 16 100 32.3 149/75(111) NSR 0 (11) 9(A) , No pain 10:37:33 103 16 100 30.8 153/76(103) NSR 0 (11) 9(A) , No pain 10:41:51 102 17 100 32.3 156/73(114) NSR 0 (11) 9(A) , No pain 10:46:13 103 17 100 32.3 153/72(113) NSR 0 (11) 9(A) , No pain 10:50:36 95 17 100 26.3 152/80(100) NSR 0 (11) 9(A) , No pain Medications Time Medication Route Dose Verified Delivered Reason Notes Effectiveness by by 10:21:42 Oxygen etCO2 2 Tariq Smith Per physician Nasal l/min Chitra Schaffer RN cannula 10:21:50 Heparin Flush added 2 Tariq Smith used for Bag to bags Chitra Schaffer RN procedure (1000units/500ml field NS) 10:21:59 0.9% NaCl I.V. 100 Tariq Smith Per physician ml/hr Chitra Schaffer RN 10:22:07 Lidocaine 2% added 20ml Tariq Smith for local to vial Chitra Schaffer RN anesthetic field 10:32:25 Heparin Bolus I.V. 4000 Tariq Smith for units Chitra Schaffer RN anticoagulation 10:34:06 Integrilin I.V. 7.3 Tariq Smith for (Bolus 2mg/ml) ml Chitra Schaffer RN anticoagulation 10:37:19 Integrilin wasted 2.7 Tariq Smith for (Bolus 2mg/ml) ml Chitra Schaffer RN anticoagulation 10:46:42 Lopressor I.V. 5 mg Tariq Smith Per physician Chitra Schaffer RN Procedure Log Time Note 9:51:36 Diagnostic Cath Status : Elective 9:51:54 Luis Schaffer RN sent for patient. Start room use. 9:51:55 Time tracking: Regular hours (M-F 7:00 - 5:00) 9:52:02 Plan of Care:Hemodynamics will remain stable., Cardiac rhythm will remain stable., Comfort level will be maintained., Respiratory function will remain adequate., Patient/ family verbilizes understanding of procedure., Procedure tolerated without complication., Recovers from procedure without complications.. 9:53:13 Lab Result : Hemoglobin 14.7 g/dl 9:53:13 Lab Result : Creatinine 1 mg/dl 9:53:13 Lab Result : BUN 17 mg/dl 10:05:02 Patient received from Med II to CCL 1 Alert and oriented. Tansferred to table in Supine position. 10:05:03 Warm blankets applied, and yobani hugger turned on for patient comfort. 10:05:03 Correct patient and procedure confirmed by team. 10:05:06 Signed procedure consent form obtained from patient. 10:05:08 ECG and BP/O2 sat monitors applied to patient. 10:13:44 Baseline sample Acquired. 10:13:44 Vital chart was started 10:13:52 Full Disclosure recording started 10:13:56 H&P Date Dictated: 10/25/2018 Within 30 days and on chart., H&P Addendum completed by physician on day of procedure. (MUST COMPLETE FOR ALL OUTPATIENTS). 10:13:58 Pre-procedure instructions explained to patient. 10:13:58 Pre-op teaching completed and patient verbalized understanding. 10:13:59 Family in waiting room. 10:14:01 Patient NPO since Midnight. 10:14:03 Is the patient allergic to Iodine/contrast media? No. 10:14:04 Was the patient premedicated? No 10:14:05 Is patient on blood thinner?Yes 10:14:08 ACC The patient was administered the following blood thiners within the last 24 hours: ACCPlavix 10:15:05 Patient diabetic? Yes. 10:15:06 If diabetic: On Metformin? Yes 10:15:11 If on Metformin: Last Dose? 10/24/2018 10:15:16 Previous problem with sedation/anesthesia? No ? 10:15:18 Snore? Yes 10:15:19 Sleep apnea? Yes 10:15:20 Deviated septum? No 10:15:20 Opens mouth fully? Yes 10:15:21 Sticks out tongue? Yes 10:15:23 Airway obstruction? No ? 10:15:26 Dentures? No ? 10:15:30 Pre procedure: right dorsailis pedis pulse 2+ Normal; easily identifiable; not easily obliterated 10:15:32 Pre procedure: left dorsailis pedis pulse 2+ Normal; easily identifiable; not easily obliterated 10:15:34 Patient pain scale 0/10 ?. 10:15:40 IV patent on arrival in left forearm with 0.9% NaCl at KVO. 10:15:42 Lab results completed and on chart. 10:15:46 Right groin area was prepped with chlora-prep and draped in sterile fashion 10::47 Alarms reviewed by R. N. 10:15:47 Sharps counted by scrub and verified by R.N. 10::42 Oxygen 2 l/min etCO2 Nasal cannula was administered by Luis Schaffer RN; Per physician; 10::50 Heparin Flush Bag (1000units/500ml NS) 2 bags added to field was administered by Luis Schaffer RN; used for procedure; 10:21:59 0.9% NaCl 100 ml/hr I.V. was administered by Luis Schaffer RN; Per physician; 10:22:07 Lidocaine 2% 20ml vial added to field was administered by Luis Schaffer RN; for local anesthetic; 10:24:54 Physician arrived 10::54 --------ALL STOP TIME OUT------ 10::55 Final Timeout: patient, procedure, and site verified with staff and physician. All members of the team are in agreement. 10:24:57 Right groin site verified by team. 10:25:00 Maximum allowable Isovue 370 dose 300ml. Physician notified. (300ml for normal creatinines. For patients with creatinine of 1.7 or higher multiply weight(kg) x 5 divided by creatinine.) 10:25:04 Fire Safety Assessment: A--An alcohol-based skin anteseptic being used preoperatively., C--Open oxygen or nitrous oxide is being used., D--An ESU, laser, or fiber-optic light is being used. 10:25:07 Physical assessment completed. ASA score P 2 - A patient with mild systemic disease as per Tariq Buenrostro MD. 10:25:11 Sedation plan: IV Moderate Sedation Medication:Versed, Fentanyl 10:25:16 Use device set Femoral Dx 10:25:17 ACIST Syringe (78873) opened to sterile field. 10:25:18 Bag Decanter () opened to sterile field. 10:25:18 Medline Cath Pack ([id number]) opened to sterile field. 10:25:20 ACIST Hand Control (15887) opened to sterile field. 10:25:20 ACIST Manifold (24865) opened to sterile field. 10:25:21 DIAGNOSTIC Multipack 5Fr catheter set (OE9277) opened to sterile field. 10:25:22 Tegaderm 4 x 4 (1626W) opened to sterile field. 10:25:23 EMERALD Guide Wire (626-164) opened to sterile field. 10:25:43 Procedure started. 10:25:50 Local anesthetic to right femoral artery with Lidocaine 2% by Tariq Buenrostro MD.INITIAL ACCESS ONLY 10:26:00 A 5 Fr sheath was inserted into the Right Femoral artery 10:26:10 A MULTIPACK Pigtail 5 Fr catheter was advanced over the wire and used for LV Angiography. 10:27:28 LV hemodynamics recorded. 10:27:29 LV gram done using CAMERON 10:27:32 Injector settings: Ml/sec: 5, Volume: 15, 10:27:38 EF : 50 % 10:27:45 Catheter removed. 10:27:49 A MULTIPACK JL 4.0 5Fr catheter was advanced over the wire and used for Left Coronary Angiography. 10:28:27 LCA angiography performed. 10:28:30 Injector settings: Ml/sec: 3, Volume: 6, 10:29:11 Catheter removed. 10:29:17 A MULTIPACK 3DRC 5Fr catheter was advanced over the wire and used for Right Coronary Angiography. 10:29:57 RCA angiography performed. 10:30:04 Injector settings: Ml/sec: 3, Volume: 6, 10:30:09 Catheter removed. 10:30:40 Proceeding to intervention. 10:31:10 GUIDE 6FR XBLAD 3.5 catheter ([id number]) opened to sterile field. 10:31:11 [place] Verrata Plus pressure wire (98525S) opened to sterile field. 10:31:11 INFLATOR Merit BasixCompak (ZI3549) opened to sterile field. 10:31:12 SHEATH 6FR [place] (AJH627) opened to sterile field. 10:31:32 Sheath upsized to a 6 Fr Short. 10:31:38 6 Fr xblad 3.5 guide catheter was inserted over the wire 10:32:25 Heparin Bolus 4000 units I.V. was administered by Luis Schaffer RN; for anticoagulation; 10:33:16 FFR/IFR wire advanced. 10:33:19 Baseline FFR 1. 10:34:06 Integrilin (Bolus 2mg/ml) 7.3 ml I.V. was administered by Luis Schaffer RN; for anticoagulation; 10:34:26 Wire removed. 10:34:48 CHOICE PT Extra Support 182cm wire ([id number]) opened to sterile field. 10:36:26 [place] Verrata Plus pressure wire (93016D) opened to sterile field. 10:36:41 choice pt wire advanced. 10:36:50 Wire removed. 10:37:02 FFR/IFR wire advanced. 10:37:19 Integrilin (Bolus 2mg/ml) 2.7 ml wasted was administered by Luis Schaffer RN; for anticoagulation; 10:40:24 Baseline FFR 1. 10:40:35 mCirc lesion measured at 0.81 with IFR 10:41:54 Place stent Inflation Number: 1 A ROXY RX 3.0 x 15 stent ([id number]) was prepped and advanced across the Mid CX . The stent was deployed at 11 VANESSA for 0:10 (min:sec) . 10:42:24 Stent catheter was removed intact over wire. 10:42:27 Wire removed. 10:42:39 Guide catheter removed. 10:43:21 GUIDE 6FR EBU 3.0 catheter (MU5VIF33) opened to sterile field. 10:43:36 6 Fr ebu 3 guide catheter was inserted over the wire 10:44:20 choice pt wire advanced. 10:45:14 Inflate balloon Inflation number: 1 A EUPHORA 2.0 x 15 Balloon ([id number]) was prepped and advanced across the Mid LAD , then inflated to 13 VANESSA for 0:10 (min:sec) . 10:46:24 Balloon removed over the wire. 10:46:42 Lopressor 5 mg I.V. was administered by Luis Schaffer RN; Per physician; 10:47:05 Place stent Inflation Number: 2 A ROXY RX 2.0 x 15 stent ([id number]) was prepped and advanced across the Mid LAD . The stent was deployed at 11 VANESSA for 0:10 (min:sec) . 10:47:29 Stent catheter was removed intact over wire. 10:47:30 Wire removed. 10:47:36 Guide catheter removed. 10:47:44 EXOSEAL 6Fr (EX600) opened to sterile field. 10:47:55 Sheath removed intact; hemostasis achieved with Exoseal to the Right Femoral artery. 10:47:57 Procedure ended.(Physican Out) 10:48:34 Fluoroscopy time 07.30 minutes. 10:48:39 Fluoroscopy dose: 888 mGy 10:48:39 Flurop Dose total: 888 10:48:43 Contrast amount:Isovue 370 158ml. 10:48:45 Sharps counted by scrub and verified by R.N. 10:48:47 Insertion/operative site no bleeding no hematoma. 10:48:50 Post-op/insertion site Right Femoral artery dressed using a 4 x 4 and Tegaderm. 10:49:01 Post procedure rhythm: unchanged. 10:49:04 Estimated blood loss: 5 ml 10:49:06 Post procedure instruction explained to patient.Patient verbalizes understanding. 10:49:06 Patient needs reinforcement of post procedure teaching. 10:49:27 Procedure type changed to Cath procedure, Diagnostic procedure, LHC, LHC w/Coronaries, FFR/IVUS, FFR Initial, Sedation Charges, Moderate Sedation up to 15 minutes, PCI procedure, Coronary Stent, Coronary Stent Initial x2 10:49:28 Procedure and supply charges have been captured, reviewed, submitted and are correct. 10:49:33 Procedure Complication : No complications 10:52:19 Vital chart was stopped 10:52:19 See physician's report for complete and final results. 10:52:21 Report given to [facility]. 10:52:23 Patient transfered to [facility] with Stretcher. 10:52:26 Procedure ended. 10:52:26 Full Disclosure recording stopped 10:52:46 ACC-PCI Only Patient was given prescriptions, or instructed by Tariq Buenrostro MD to start/continue the following medications upon discharge: Plavix 10:52:48 End room use (Document Last) Intervention Summary Intervention Notes Time ActionType Lesion and Equipment Used Action# Pressure Duration Attributes 10:41:54 Place stent Mid CX ROXY RX 3.0 x 1 11 00:10 15 stent ([id number]) 10:45:14 Inflate Mid LAD EUPHORA 2.0 x 1 13 00:10 balloon 15 Balloon ([id number]) 10:47:05 Place stent Mid LAD ROXY RX 2.0 x 2 11 00:10 15 stent ([id number]) Device Usage Item Name Manufacture Quantity Catalog Number Hospital Part Current Minimal Lot# / Charge Number Stock Stock Serial# Code ACIST Syringe Acist 1 88881 633140 [id number] [id number] 20 (57890) Medical Systems Inc Bag Decanter Microtek 1 2001S 926583 30685 044996 5 () Medical Inc. Medline Cath Medline 1 [id number] 674257 79596 611380 5 Pack ([id number]) ACIST Hand Acist 1 01199 668082 779638 017407 5 Control Medical (15072) Systems Inc ACIST Manifold Acist 1 59150 177128 929494 658584 5 (93468) Medical Systems Inc DIAGNOSTIC Cardinal 1 [id number] 815998 30317 842922 30 Multipack 5Fr Health catheter set (XD6697) Tegaderm 4 x 4 3M 1 1626W 076655 692781 424440 5 (1626W) EMERALD Guide Cardinal 1 502-455 350333 494330 573130 5 Wire (502-455) Health MULTIPACK Cardinal 1 191985 5 Pigtail 5 Fr Health catheter MULTIPACK JL Cardinal 1 629246 5 4.0 5Fr Health catheter MULTIPACK 3DRC Cardinal 1 313588 5 5Fr catheter Health GUIDE 6FR Cardinal 1 [id number] 837941 824835 394722 10 XBLAD 3.5 Health catheter (62242768) [place] 2 57222M 157298 825785401 419643 5 Verrata Plus pressure wire (80121P) INFLATOR Merit Merit 1 YP9730 694784 147900 523595 15 XPlace Medical (MQ5538) SHEATH 6FR Terumo 1 RXM962 642796 545739 073951 40 [place] (WPA939) CHOICE PT [place] 1 [id number] 491479 838727 656305 5 Extra Support Scientific 182cm wire ([id number]) ROXY RX 3.0 x Medtronic 1 [id number] 423450 3912405 244254 5 [id number] 15 stent ([id number]) GUIDE 6FR EBU Medtronic 1 [id number] 327593 63495 521267 0 3.0 catheter ([id number]) EUPHORA 2.0 x Medtronic 1 [id number] 054906 211153 941174 5 [id number] 15 Balloon ([id number]) ROXY RX 2.0 x Medtronic 1 [id number] 560095 8952350 070256 5 [id number] 15 stent ([id number]) EXOSEAL 6Fr Cardinal 1 EX600 821286 132864 978645 10 (EX600) Health Signature Audit Plover Stage Time Signature Unsigned Intra-Procedure 10/25/2018 Lauren Lopez 10:56:26 AM RT(R) Signatures Monitor : Lauren Lopez RT Signature : Date : Time : [address] [place] [address]
[~2018-10-25 06:47] MED LIST changes: +LANTUS SOL100 UNIT/1 SC; -LANTUS SOL100 UNIT/1 SQ
[2018-10-25 07:14] LABS: BASOPHILS 0.5 % (0-2); EOSINOPHILS 0.9 % (0-7); HEMATOCRIT 42.3 % (36.0-48.0); HEMOGLOBIN 14.7 g/dL (12-16); IMMATURE GRANULOCYTES 0.3 % (0-5); LYMPHOCYTES 34.1 % (15-50); MCHC 34.8 g/dL (31.0-37.0); MCV 92.2 fL (80.0-100.0); MEAN PLATELET VOLUME 9.9 fL (7.4-10.4); MONOCYTES 10.6 % (2-11); NEUTROPHILS 53.6 % (40-80); PLATELET COUNT 274 10x3/uL (130-400); RBC 4.59 10x6/uL (4.00-5.40); RDW 12.3 % (11.5-14.5); WBC 8.7 10x3/uL (4.8-10.8)
[2018-10-25 07:22] LABS: INR 0.96 (0.85-1.17); PROTIME 12.3 SECONDS (11.6-15.0)
[2018-10-25 07:23] LABS: APTT 31.4 SECONDS (22.8-39.4)
[2018-10-25 07:27] LABS: ALBUMIN 3.6 g/dL (3.4-5.0); ALKALINE PHOSPHATASE 55 U/L (46-116); ALT (SGPT) 32 U/L (10-68); BILIRUBIN - TOTAL 0.45 mg/dL (0.2-1.3); CALC OSMOLALITY 280 mosm/kg (275-300); CALCIUM 9.6 mg/dL (8.5-10.1); CARBON DIOXIDE 27.1 mmol/L (21.0-32.0); CHLORIDE - SERUM 99 mmol/L (98-107); GLUCOSE 156 mg/dL (74-106); POTASSIUM - SERUM 3.9 mmol/L (3.5-5.1); PROTEIN - SERUM 7.4 g/dL (6.4-8.2); SODIUM 138 mmol/L (136-145); UREA NITROGEN 17 mg/dL (7-18); eGFR NON AFRICAN AMERICAN 56 mL/min (90-120)
[2018-10-25 07:39] LABS: CKMB 0.6 U/L (0.0-3.6); CREATINE KINASE 38 UL (21-215); MAGNESIUM - SERUM 1.6 mg/dL (1.8-2.4); TROPONIN-I < 0.017 ng/mL (0.000-0.060)
[2018-10-25 07:41] LABS: APPEARANCE CLEAR (CLEAR); BILIRUBIN NEGATIVE (NEGATIVE); COLOR YELLOW (YELLOW); GLUCOSE NEGATIVE (NEGATIVE); KETONE NEGATIVE (NEGATIVE); NITRITE NEGATIVE (NEGATIVE); PROTEIN NEGATIVE (NEGATIVE); SPECIFIC GRAVITY 1.005 (1.005-1.020); UROBILINOGEN NORMAL (NORMAL)
[2018-10-25 07:42] LABS: BACTERIA MANY /hpf (NONE SEEN); EPITHELIAL CELLS 0-5 /hpf (0-5); RED CELLS - URINE NONE SEEN /hpf (0-5); WHITE CELLS - URINE 0-5 /hpf (0-5)
--- NOTE | 2018-10-25 07:45 | NUR ---
PT RESTING IN BED WITH AT BEDSIDE. NO ACUTE CHANGES. WILL CON'T TO MONITOR FOR CHANGES.
[2018-10-25 07:50] VITALS: BP 155/77
[2018-10-25] MEDS ORDERED: ALDACTONE25 MG PO (08:49)
[2018-10-25 08:51] VITALS: BP 167/72
[2018-10-25 09:43] VITALS: BP 167/72; BMI 32.2
--- NOTE | 2018-10-25 09:55 | NUR ---
ALERT AND ORIENTED X4. LAYING IN BED. FAMILY AT BEDSIDE. CONSENTS FOR [facility] SIGNED ON CHART. TAKEN TO [facility] VIA BED. CONTINUE PLAN OF CARE AND SAFETY PRECAUTIONS.
--- NOTE | 2018-10-25 10:41 | NUR ---
ARRIVE TO FLOOR VIA BED FROM ER VIA WHEELCHAIR ACCOMPANIED BY SPOUSE. AMBULATES TO BED. GAIT STEADY. ALERT AND ORIENTED X4. NOTIFIED OF ARRIVAL TO FLOOR. REFUSE SCDs. CONTINUE ADMISSION PROCESS. CONTINUE PLAN OF CARE AND SAFETY PRECAUTIONS.
--- NOTE | 2018-10-25 11:13 | NUR ---
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 ALERT AND ORIENTED X4. SPOUSE AT BEDSIDE. BP-143/70, HR-81 SINUS RHYTHM, O2-100% WITH 2L NC. RT GROIN DRESSING CLEAN DRY INTACT. FREE FROM BLEEDING. FREE FROM HEMATOMA. PULSE PALPABLE BILATERALLY. CONTINUE PLAN OF CARE AND SAFETY PRECAUTIONS.
[2018-10-25] MEDS ORDERED: PLAVIX75 MG PO (12:22)
--- NOTE | 2018-10-25 16:09 | NUR ---
ALERT AND ORIENTED X4. RT GROIN DRESSING CLEAN DRY INTACT. FREE FROM BLEEDING. FREE FROM HEMATOMA. DC LT FA IV TIP INTACT. DISCHARGE INSTRUCTIONS GIVEN VERBALLY AND WRITTEN. DISCHARGE PAPERS SIGNED ON CHART. ESCORT TO RIDE VIA WHEELCHAIR. REMAINS FREE FROM INJURY.
--- NOTE | 2018-10-26 08:30 | MORECARE ---
CASE MANAGEMENT DISCHARGE SUMMARY PATIENT: MAXIMO TIPTON UNIT: [id number] ADM DATE: 10/25/18 AGE: 82 : 36 SEX: F ROOM/BED: D.2111 AUTHOR: [place] PHYSICIAN: REFERRING PHYSICIAN: ILIANA JARAMILLO MD DATE OF SERVICE: 10/26/18 Discharge Plan Patient Name: MAXIMO TIPTON [facility] [facility] 1935 Planned Disposition: Home Anticipated Discharge Date: 10/25/18 Discharge Date: 10/25/2018 Expected LOS: 1 Initial Reviewer: [email or web address] Initial Review Date: 10/26/2018 Generated: 10/26/18 9:30 am Patient Name: MAXIMO TIPTON Page 60422 at 0830 All edits/amendments must be made on the electronic document DICTATION DATE: 10/26/18829 HAT BINDER: MICHEL 10/26/18829 RPT#: [id number] DC DATE:10/25/18 STATUS: DIS IN [facility] [address] [place] [address] END OF REPORT
--- NOTE | 2018-10-26 09:50 | HP ---
PATIENT: MAXIMO WILSON SEPTEMBER MEDICAL RECORD: [id number] ACCOUNT: [id number] LOCATION:[address] : [birth year] ADMISSION DATE: 10/25/18 PCP: HOANG BUTLER DO HISTORY AND PHYSICAL EXAMINATION DIAGNOSES: 1. Class IV unstable angina. 2. Coronary artery disease. 3. Previous PTCA and stent to LAD in July of last year. 4. Abnormal ECG. 5. Hypertension. 6. Insulin-dependent diabetes. HISTORY: Mrs. Wilson presents with over a month of increasing anginal chest discomfort and severe chest discomfort this morning, not relieved with multiple sublingual nitros or morphine with the addition of nitro paste to her beta-maria del carmen. She continues to have 5/10 chest pains, just like that of her previous angina. Her last cardiac intervention was in July of last year. Her EKG suggests previous inferior and anterior MA; however, there is no acute ST elevation. PHYSICAL EXAMINATION: GENERAL APPEARANCE: Well-nourished, well-developed, appears stated age. Level of distress, comfortable. PSYCHIATRIC: Mental status, alert, normal affect. Orientation, oriented to time, place and person. EYES: Lids and conjunctiva, noninjected. No discharge, no pallor. ENT: Lips, teeth, gums, normal dentition. Oropharynx, no cyanosis, no pallor. NECK: Carotid arteries, bilateral normal upstroke, no bruits, no thrills. JUGULAR VEINS: No jugular venous pressure or distention. CERVICAL LYMPH NODES: Nontender, nonenlarged. THYROID: Not enlarged. Nontender. No nodules. LUNGS: Respiratory effort, unlabored. CHEST: Normal curvature. No thoracic deformity. No chest wall tenderness. Percussion, resonant. Auscultation, clear. No wheezes, no rales, no rhonchi. CARDIOVASCULAR: Precordial exam, nondisplaced. No heaves or pericardial thrills. Rate and rhythm, regular. Heart sounds, normal S1, normal S2. No S3, no gallop, no rub. Systolic murmur, not heard. Diastolic murmur, not heard. EXTREMITIES: No cyanosis, no edema. Peripheral pulses, full and equal in all extremities, except as noted. No bruits appreciated. ABDOMEN: Soft, nondistended. Normal aorta. No bruit. Nontender. No masses. Liver, nontender, no hepatomegaly. Spleen, nontender, no splenomegaly. MUSCULOSKELETAL: No joint tenderness. No joint swelling. No erythema. NEUROLOGICAL: Normal gait, normal strength, normal tone. SKIN: Warm and dry. OVERALL IMPRESSION: Class IV unstable angina in an 82-year-old female with past history of coronary artery disease, who has had aspirin for past 24 hours. She continues to have severe chest discomfort despite medical therapy with ALAN inhibitor and beta-maria del carmen. We will proceed with coronary angiography. Further care depends upon findings of the angiography. TRANSINT:[id number] Voice Confirmation ID: [id number] DOCUMENT ID: [id number] HISTORY AND PHYSICAL [id number] MAXIMO IWLSON JEFFREY MD at 0950 CC: [id number] DICTATION DATE: 10/25/1837 REGIONAL RECRUITER: 10/25/18 1413 DIS IN 10/25/18 [address] [place] [address]
--- NOTE | 2018-10-26 09:50 | OP ---
PATIENT NAME: MAXIMO TIPTON MEDICAL RECORD: [id number] :37 LOCATION:D.M2 D.2111 ADMISSION DATE:10/25/18 SURGEON: ILIANA JARAMILLO MD DATE OF OPERATION: 10/25/2018 PROCEDURES: 1. PTCA and stent, LAD. 2. PTCA and stent, left circumflex. 3. IFR, left circumflex. 4. Left heart catheterization. 5. Selective coronary angiography. 6. Left ventriculogram. INDICATIONS: Angina and coronary artery disease. PROCEDURE IN DETAIL: After informed consent was obtained with detailed description of risks and benefits as well as alternative therapies, the patient elected to proceed with angiogram and angioplasty. The right femoral area was prepped and draped in normal sterile fashion. The right femoral artery was cannulated via modified Seldinger technique with placement of 6-Zambian sheath. All catheters were exchanged through this sheath. FINDINGS: The left ventriculogram performed in standard 30-degree CAMERON view reveals good cardiac wall motion. Ejection fraction 50%. SELECTIVE CORONARY ANGIOGRAPHY: 1. Left main shows no significant angiographic disease. 2. Left anterior descending has previously placed stents. These are widely patent; however, there is 95% to 99% stenosis distally. 3. Left circumflex has 75% stenosis with abnormal IFR of 0.81 in the mid vessel. 4. Right coronary has previously placed stents. These are widely patent. PTCA AND STENT OF THE LEFT CIRCUMFLEX: The stent used was 3.0 x 15 mm [place]. Result was 0% residual stenosis. PTCA AND STENT OF THE LAD: The stent used was 2.0 x 15 mm [place]. Result was 0% residual stenosis. OVERALL IMPRESSION: Successful PTCA and stent of the LAD, going from 95% to 99% initial stenosis to 0% residual. Successful PTCA and stent of the left circumflex, going from 75% initial stenosis to 0% residual. TRANSINT:[id number] Voice Confirmation ID: [id number] DOCUMENT ID: [id number] ILIANA JARAMILLO MD at 0950 CC: [id number] DICTATION DATE: 10/25/18 1059 CAR OILER: 10/25/18 1647 DIS IN 10/25/18 [place] [address]
--- NOTE | 2018-10-26 09:50 | DS ---
PATIENT:MAXIMO WILSON SEPTEMBER :37 MEDICAL RECORD: [id number] DISCHARGE SUMMARY ADMISSION DATE: 10/25/18 DISCHARGE DATE: 10/25/18 DISCHARGE DIAGNOSES: 1. Unstable angina. 2. Percutaneous transluminal coronary angioplasty and stent to the left anterior descending and circumflex this admission. 3. Hypertension. 4. Hyperlipidemia. HOSPITAL COURSE: Ms. Wilson presents with unstable anginal symptomatology, found to have critical disease of the LAD and circumflex, underwent successful PTCA and stent of both territories, was discharged home with the addition of aspirin and Plavix to her medical regimen. Follow up with [facility] 1 month. TRANSINT:[id number] Voice Confirmation ID: [id number] DOCUMENT ID: [id number] ILIANA JARAMILLO MD at 0950 CC: [id number] DICTATION DATE: 10/25/18 1057 REMOTE CONTROL ASSEMBLER: 10/26/18 0145 DIS IN 10/25/18 [id number] [place] [address]
== END 2018-10-25 16:15 | disposition home or self-care (01) ==
LOC: OBSVTIME → D.CATH 06:47 → D.ER 06:47 → D.M2 08:13 → D.ER 08:13 → D.M2 08:13 → OBSVTIME 08:13 → D.ER 08:17 → EDSTATUS 14:22 → D.M2 16:15 → D.CATH 16:15
PROVIDERS: Family Medicine; ATTEND Internal Medicine Interventional Cardiology
DX: I25.110 Atherosclerotic heart disease of native coronary artery with unstable angina pectoris (principal); R94.31 Abnormal electrocardiogram [ECG] [EKG]; I10 Essential (primary) hypertension; E11.65 Type 2 diabetes mellitus with hyperglycemia; Z79.4 Long term (current) use of insulin
CPT/HCPCS: 93458; C9600 ×2

== ENCOUNTER 2019-09-16 15:10 | Inpatient (IN) | payer MEDICARE ==
[~2019-09-16] VITALS: Ht 157.5 cm; Wt 81.6 kg
--- NOTE | ~2019-09-16 | OP ---
PATIENT NAME: MAXIOM TIPTON MEDICAL RECORD: [id number] :37 LOCATION:D.M2 D.2118 ADMISSION DATE:09/16/19 SURGEON: STANTON LOPEZ MD DATE OF OPERATION: 09/16/2019 PROCEDURE: Left heart catheterization, selective coronary angiography, right femoral artery approach. CATHETERS: A 5-Malay sheath, 5/4 left and right Charlotte, 5/4 pig. The procedure was well tolerated. The patient returned to the mccurdy. Sheath was removed. Adequate hemostasis and ExoSeal device placed. FINDINGS: Left ventriculography in 30-degree CAMERON view: Normal wall motion, normal systolic function. EF is 55%. CORONARY ANATOMY: LEFT MAIN: Left main is free of disease. LAD: An area of previous stenting is widely patent with some luminal irregularities distally. No flow obstructive disease. CIRCUMFLEX: Free of disease. RIGHT CORONARY ARTERY: The right coronary artery is a widely patent stent. It actually shows nice step up and step down, some luminal irregularities distally consistent with diabetic disease, but no focal stenosis. IMPRESSION: Medical management. No major flow obstructive epicardial disease. TRANSINT:[id number] Voice Confirmation ID: [id number] DOCUMENT ID: [id number] STANTON LOPEZ MD CC: [id number] DICTATION DATE: 09/17/1928 COMMUNITY LIVING COACH: 09/17/19 1553 DIS IN 09/17/19 [facility] [address] [place] [address]
--- NOTE | ~2019-09-16 | HEMODYNAMI ---
PATIENT:MAXIMO TIPTON SEPTEMBER MEDICAL RECORD: [id number] : 37 LOCATION:[facility] D.2118 ADMISSION DATE: 09/16/19 Generatedon:09/17/20199:22 Patient name: MAXIMO TIPTON Patient #: [id number] SSN: : 1935 Date of study: 09/17/2019 Page: Of Hemodynamic Procedure Report Patient Data Patient Demographics Procedure consent was obtained First Name: MAXIMO Gender: Female Last Name: DANUTA : 1935 Middle Initial: SEPTEMBER Age: 83 year(s) Patient #: [id number] Race: Additional ID: [id number] Contact details [address]: [address] [place] [address] State: [place] City: [place] Zip code: [address] Past Medical History Allergies Allergen Reaction Date Comments Reported Other allergy 07/25/2015 Keven Inhibitors Sulfa drugs 07/25/2015 Penicillins 07/25/2015 Penicillins 03/11/2017 Sulfa drugs 03/11/2017 Other allergy 08/11/2017 PCN,KEVEN Inhibitors, SULFA Other allergy 09/17/2019 SEE CHART Admission Admission Data Admission Date: 09/16/2019 Admission Time: 15:10 Room #: D.2118 Lab Results Lab Result Date: 09/17/2019 Lab Result Time: 0:00 Biochemistry Name Units Result Min Max BUN mg/dl 19 --(----)*- 7 18 Creatinine mg/dl 1.2 --(---*)-- 0.6 1.3 eGFR ml/min 45 *-(----)-- 90 120 NONAFRICAN CBC Name Units Result Min Max Hematocrit % 44.6 --(*---)-- 42 54 Hemoglobin g/dl 14.9 --(-*--)-- 13.5 17.5 Procedure Procedure Types Cath Procedure Diagnostic Procedure LHC LHC w/Coronaries Sedation Charges Moderate Sedation up to 15 minutes Procedure Description Procedure Date Procedure Date: 09/17/2019 Procedure Start Time: 9:12 Procedure End Time: 9:21 Procedure Staff Name Function Tommie Arthur MD Performing Physician Mackenzie Banks RT Monitor Myesha Villalta RT Scrub Janet Dye RN Nurse Procedure Data Cath Procedure Fluoroscopy Diagnostic fluoroscopy Total fluoroscopy Time: 2.1 time: 2.1 min min Diagnostic fluoroscopy Total fluoroscopy dose: 367 dose: 367 mGy mGy Contrast Material Contrast Material Type Amount (ml) Isovue 300 47 Entry Location Entry Primary Successful Side Size Upsize Upsize Entry Closure Succes sful Closure Location (Fr) 1 (Fr) 2 (Fr) Remarks Device Remarks Femoral Right 5 Fr Exoseal artery Estimated blood loss: 10 ml Diagnostic catheters Device Type Used For End Catheter Placement MULTIPACK JL 4.0 5Fr Procedure catheter DIAGNOSTIC JL 3.5 5Fr Procedure catheter ([id number]) MULTIPACK 3DRC 5Fr Procedure catheter MULTIPACK Pigtail 5 Fr Ventriculography catheter Procedure Complications No complications Procedure Medications Medication Administration Route Dosage 0.9% NaCl I.V. 100 ml/hr Oxygen etCO2 Nasal cannula 2 l/min Lidocaine 2% added to field 20 Heparin Flush Bag added to field 2 bags (1000units/500ml NS) Versed I.V. 2 mg Fentanyl I.V. 50 mcg Hemodynamics Rest HGB: 14.9 (g/dl) Heart Rate: 85 (bpm) Pressure Samples Time Site Value (mmHg) Purpose Heart Use Rate(bpm) 9:18 LV 148/4,4 Snapshot 96 9:18 AO 160/69(110) Pullback 96 9:18 LV 162/-6,11 Pullback 96 Gradients Valve Time Site 1 Site 2 Mean SEP/DFP Peak To Heart Use (mmHg) (sec/min) Peak Rate (mmHg) (bpm) Aortic 9:18 LV AO 10 16 2 96 162/-6,11 160/69(110) Calculations Valve P-P Mean Valve Index Valve Source Name Gradient Area Flow (cm2) Aortic 2 10 2 10 Snapshots Pre Cath Intra NCS Post Cath Vital Signs Time Heart Resp SPO2 etCO2 NIBP (mmHg) Rhythm Pain Sedation Rate (ipm) (%) (mmHg) Status Level (bpm) 9:04:09 87 13 99 31.4 161/83(142) NSR 0 (11) 10(A) , No pain 9:08:27 88 19 87 17 151/71(117) NSR 0 (11) 10(A) , No pain 9:12:47 89 17 97 6.7 159/76(139) NSR 0 (11) 9(A) , No pain 9:17:11 96 15 99 11.2 159/63(116) NSR 0 (11) 9(A) , No pain 9:21:25 96 18 100 36.6 148/76(118) NSR 0 (11) 9(A) , No pain Medications Time Medication Route Dose Verified Delivered Reason Notes Effe ctiveness by by 9:03:02 0.9% NaCl I.V. 100 Tommie Janet used for ml/hr SandhyaGeovanny Dye procedure RN 9:03:08 Oxygen etCO2 2 Tommie Janet used for Nasal l/min [place] Hardik procedure cannula RN 9:03:13 Lidocaine 2% added 20ml Tommie Tommie for local to vial [facility] anesthetic field MD CHAUHAN 9:03:28 Heparin Flush added 2 Tommie Tommie used for Bag to bags [facility] procedure (1000units/500ml field MD CHAUHAN NS) 9:08:19 Versed I.V. 2 mg Tommie Janet for [facility] Geovanny Dye sedation RN 9:08:24 Fentanyl I.V. 50 Tommie Janet for mcg [place] Hardik sedation arc cutter Log Time Note 8:40:08 Informed consent obtained and on chart 8:40:28 Procedure Status Urgent Heart Cath (IP). 8:40:29 Myesha Villalta RT(R) sent for patient. Start room use. 8:40:30 Time tracking: Regular hours (M-F 7:00 - 5:00) 8:40:32 Plan of Care:Hemodynamics will remain stable., Cardiac rhythm will remain stable., Comfort level will be maintained., Respiratory function will remain adequate., Patient/ family verbilizes understanding of procedure., Procedure tolerated without complication., Recovers from procedure without complications.. 8:40:36 H&P Date Dictated: 09/17/2019 ER History on chart.. 8:42:46 Lab Result : BUN 19 mg/dl 8:42:46 Lab Result : Creatinine 1.2 mg/dl 8:42:46 Lab Result : eGFR NONAFRICAN 45 ml/min 8:42:46 Lab Result : Hemoglobin 14.9 g/dl 8:42:46 Lab Result : Hematocrit 44.6 % 9:02:52 Vital chart was started 9:03:02 0.9% NaCl 100 ml/hr I.V. was administered by Janet Dye RN; used for procedure; Verbal order read back and verified. 9:03:08 Oxygen 2 l/min etCO2 Nasal cannula was administered by Janet Dye RN; used for procedure; Verbal order read back and verified. 9:03:13 Lidocaine 2% 20ml vial added to field was administered by Tommie Arthur MD; for local anesthetic; Verbal order read back and verified. 9:03:28 Heparin Flush Bag (1000units/500ml NS) 2 bags added to field was administered by Tommie Arthur MD; used for procedure; Verbal order read back and verified. 9:03:50 Patient received from Med II to CCL 2 Alert and oriented. Tansferred to table in Supine position. 9:03:52 Warm blankets applied, and yobani hugger turned on for patient comfort. 9:03:53 Correct patient and procedure confirmed by team. 9:03:53 ECG and BP/O2 sat monitors applied to patient. 9:03:54 Baseline sample Acquired. 9:04:01 Full Disclosure recording started 9:04:05 Family in waiting room. 9:04:08 Patient NPO since Midnight. 9:04:23 Patient allergic to Other allergySEE CHART 9:04:26 Is the patient allergic to Iodine/contrast media? No. 9:04:28 Was the patient premedicated? Yes 9:04:30 Is patient on blood thinner?Yes 9:04:33 Patient diabetic? Yes. 9:04:34 If diabetic: On Metformin? No 9:04:38 Snore? Yes 9:04:39 Sleep apnea? Yes 9:04:44 Dentures? No ? 9:04:47 Patient pain scale 0/10 ?. 9:04:53 IV patent on arrival in left forearm with 0.9% NaCl at [facility]. 9:04:56 Lab results completed and on chart. 9:05:01 Right groin area was prepped with chlora-prep and draped in sterile fashion 9:05:02 Alarms reviewed by R. N. 9:05:02 Sharps counted by scrub and verified by R.N. 9:05:03 Physician paged 9:05:04 Physician arrived 9:05:05 --------ALL STOP TIME OUT------ 9:05:05 Final Timeout: patient, procedure, and site verified with staff and physician. All members of the team are in agreement. 9:05:29 Right groin site verified by team. 9:05:34 Fire Safety Assessment: A--An alcohol-based skin anteseptic being used preoperatively., C--Open oxygen or nitrous oxide is being used., D--An ESU, laser, or fiber-optic light is being used. 9:05:40 Physical assessment completed. ASA score P 3 - A patient with severe systemic disease as per Tommie Arthur MD. 9:07:24 3a) 45-59 Moderately reduced kidney function. 9:07:28 Maximum allowable contrast dose (3.7 X eGFR X 0.75)125 ml. 9:07:32 Sedation plan: IV Moderate Sedation Medication:Versed, Fentanyl 9:08:19 Versed 2 mg I.V. was administered by Janet Dye RN; for sedation; Verbal order read back and verified. 9:08:24 Fentanyl 50 mcg I.V. was administered by Janet Dye RN; for sedation; Verbal order read back and verified. 9:11:45 Use device set Femoral Dx 9:11:49 Procedure started. 9:12:05 Local anesthetic to right femoral artery with Lidocaine 2% by Tommie Arthur MD.INITIAL ACCESS ONLY 9:12:13 A 5 Fr sheath was inserted into the Right Femoral artery 9:12:16 ACIST Syringe (59035) opened to sterile field. 9:12:16 Bag Decanter (2002) opened to sterile field. 9:12:17 Medline Cath Pack ([id number]) opened to sterile field. 9:12:18 ACIST Hand Control (93439) opened to sterile field. 9:12:19 ACIST Manifold (62160) opened to sterile field. 9:12:19 DIAGNOSTIC Multipack 5Fr catheter set ([id number]) opened to sterile field. 9:12:23 SHEATH 5FR [place] (PHN561) opened to sterile field. 9:12:24 EMERALD Guide Wire (502-326) opened to sterile field. 9:12:25 Tegaderm 4 x 4 (1626W) opened to sterile field. 9:13:01 Zero performed for pressure channel P1 9:13:05 Zero performed for pressure channel P1 9:13:08 Zero performed for pressure channel P1 9:13:16 Zero performed for pressure channel P1 9:13:41 A MULTIPACK JL 4.0 5Fr catheter was advanced over the wire and used for Procedure. 9:13:43 LCA angiography performed. 9:14:46 Catheter removed. 9:15:26 A DIAGNOSTIC JL 3.5 5Fr catheter ([id number]) was advanced over the wire and used for Procedure. 9:15:30 LCA angiography performed. 9:16:26 Catheter removed. 9:16:35 A MULTIPACK 3DRC 5Fr catheter was advanced over the wire and used for Procedure. 9:16:42 RCA angiography performed. 9:17:28 Catheter removed. 9:17:37 A MULTIPACK Pigtail 5 Fr catheter was advanced over the wire and used for Ventriculography. 9:17:43 LV angiography performed. 9:17:48 Zero performed for pressure channel P1 9:17:55 Zero performed for pressure channel P1 9:18:02 Zero performed for pressure channel P1 9:18:54 EF : 55 % 9:18:56 Catheter removed. 9:19:05 Sheath removed intact; hemostasis achieved with Exoseal to the Right Femoral artery. 9:19:12 Procedure ended.(Physican Out) 9:19:24 Fluoroscopy time 02.10 minutes. 9:19:31 Flurop Dose total: 367 9:19:31 Fluoroscopy dose: 367 mGy 9:19:55 Dose Area Product 04128 mGy/cm. 9:20:00 Contrast amount:Isovue 300 47ml. 9:20:03 Maximum allowable dose exceeded? No. 9:20:04 Sharps counted by scrub and verified by R.N. 9:20:05 Insertion/operative site no bleeding no hematoma. 9:20:10 Post-op/insertion site Right Femoral artery dressed using a 4 x 4 and Tegaderm. 9:20:12 Post Procedure Pulses reassessed and unchanged 9:20:15 Post-procedure physical assessment completed. ASA score P 3 - A patient with severe systemic disease as per Tommie Arthur MD. 9:20:18 Post procedure rhythm: unchanged. 9:20:20 Estimated blood loss: 10 ml 9:20:22 Post procedure instruction explained to patient.Patient verbalizes understanding. 9:20:35 Procedure type changed to Cath procedure, Diagnostic procedure, LHC, C w/Coronaries, Sedation Charges, Moderate Sedation up to 15 minutes 9:20:37 Procedure and supply charges have been captured, reviewed, submitted and are correct. 9:21:07 Procedure Complication : No complications 9:21:10 Vital chart was stopped 9:21:13 [facility] Findings: mild to moderate CAD (<70%) 9:21:15 See physician's report for complete and final results. 9:21:17 Report given to Pre/Post Procedure Room. 9:21:22 Patient transfered to Pre/Post Procedure Room with Bed. 9:21:25 Procedure ended. 9:21:25 Full Disclosure recording stopped Device Usage Item Name Manufacture Quantity Catalog Hospital Part Current Minimal L ot# / Number Charge Number Stock Stock Serial# Code ACIST Acist 1 30919 534508 614414 671884 20 Syringe Medical (47336) Systems Inc Bag Microtek 1 759771 77277 085063 5 Decanter Medical Inc. () Medline Medline 1 [id number] 116035 12787 788504 5 Cath Pack ([id number]) ACIST Hand Acist 1 23012 215458 569858 483166 5 Control Medical (33272) Systems Inc ACIST Acist 1 35026 642691 464958 455406 5 Manifold Medical (27363) Systems Inc DIAGNOSTIC Cardinal 1 PS5588 788590 99605 345987 30 Multipack Health 5Fr catheter set (YJ1858) SHEATH 5FR Terumo 1 SHT242 608514 883609 210568 5 [place] (PWG065) EMERALD Cardinal 1 502-455 459568 261776 148493 5 Guide Wire Health (502-455) Tegaderm 4 3M 1 1626W 839536 636293 827799 5 x 4 (1626W) MULTIPACK Cardinal 1 809765 5 JL 4.0 5Fr Health catheter DIAGNOSTIC Cardinal 1 [id number] 507242 873418 684221 5 JL 3.5 5Fr Health catheter (291972N) MULTIPACK Cardinal 1 524612 5 3DRC 5Fr Health catheter MULTIPACK Cardinal 1 145000 5 Pigtail 5 Health Fr catheter Signature Audit [place] Stage Time Signature Unsigned Intra-Procedure 09/17/2019 Mackenzie Banks 9:21:42 AM RT(R); Janet Dye RN; Tommie Arthur MD Signatures Performing Physician : Signature : Tommie Arthur MD Date : Time : Monitor : Mackenzie Banks Signature : RT Date : Time : Nurse : Janet Dye RN Signature : Date : Time : [facility] [address] [facility] [place] [address]
--- NOTE | ~2019-09-16 | DS ---
PATIENT:MAXIMO TIPTON SEPTEMBER :37 MEDICAL RECORD: [id number] DISCHARGE SUMMARY ADMISSION DATE: 09/16/19 DISCHARGE DATE: 09/17/19 DATE OF ADMISSION: 09/16/2019 DATE OF DISCHARGE: 09/17/2019 PROBLEM LIST: 1. Acute coronary syndrome. 2. Cardiomyopathy. 3. Hypertension. 4. Hyperlipidemia. BRIEF HISTORY AND HOSPITAL COURSE: Admitted with acute coronary syndrome symptomatology, found to have patent stents. LV function is actually improved from previous with revascularization and medical therapy. Discharged home in good condition. MEDICATIONS: As prior to admission. ACTIVITY: As tolerated. DIET: 1500 calorie ADA diet. TRANSINT:[id number] Voice Confirmation ID: [id number] DOCUMENT ID: [id number] STANTON LOPEZ MD CC: [id number] DICTATION DATE: 09/17/19926 PAN DEVULCANIZER HELPER: 09/17/192210 DIS IN 09/17/19 [facility] [address] [place] [address]
[~2019-09-16 15:10] MED LIST changes: +ALDACTONE25 MG PO
[2019-09-16] MEDS ORDERED: LANTUS INS100 UNITS/ SC (16:06)
[2019-09-16 16:11] VITALS: BP 169/73; BMI 33.0
[2019-09-16 16:15] LABS: BASOPHILS 0.4 % (0-2); EOSINOPHILS 1.3 % (0-7); HEMATOCRIT 44.6 % (36.0-48.0); HEMOGLOBIN 14.9 g/dL (12-16); IMMATURE GRANULOCYTES 0.4 % (0-5); LYMPHOCYTES 31.5 % (15-50); MCH 31.5 pg (26.0-34.0); MCHC 33.4 g/dL (31.0-37.0); MCV 94.3 fL (80.0-100.0); MEAN PLATELET VOLUME 10.1 fL (7.4-10.4); MONOCYTES 11.7 % (2-11); NEUTROPHILS 54.7 % (40-80); PLATELET COUNT 223 10x3/uL (130-400); RBC 4.73 10x6/uL (4.00-5.40); WBC 7.8 10x3/uL (4.8-10.8)
[2019-09-16 16:20] LABS: INR 0.97 (0.85-1.17); PROTIME 12.8 SECONDS (11.6-15.0)
[2019-09-16 16:50] LABS: CALCIUM 9.5 mg/dL (8.5-10.1); CARBON DIOXIDE 23.1 mmol/L (21.0-32.0); CREATININE - SERUM 1.2 mg/dL (0.6-1.3); POTASSIUM - SERUM 4.1 mmol/L (3.5-5.1)
[2019-09-16 17:05] LABS: CHOL - HDL RATIO 7.4 ratio (2.3-4.1); LDL-HDL RATIO 4.5 ratio (1.5-3.5)
[2019-09-16 17:51] VITALS: BP 169/73
--- NOTE | 2019-09-16 19:35 | NUR ---
PATIENT IS ALERT AND ORIENTED, RESTING COMFORTABLY IN BED. RESPIRATIONS ARE EVEN AND UNLABORED. NO S/S OF DISTRESS. NO C/O PAIN. CALL LIGHT WITHIN REACH. WILL CPOC.
[2019-09-16 20:00] VITALS: BP 164/67
[2019-09-17] VITALS: BP 133/53
--- NOTE | 2019-09-17 03:43 | NUR ---
I have reviewed this patient and I concur with the Shift Assessment completed by the Licensed Practical Nurse today this shift.
[2019-09-17 04:00] VITALS: BP 149/60
--- NOTE | 2019-09-17 07:15 | NUR ---
RECEIVED PT IN BED AAOX4 RESP UNLABORED SKIN W/D COLOR WNL DENIES ANY PAIN OR NEEDS AT THIS TIME NAD NOTED
[2019-09-17 08:04] VITALS: BP 138/59
[2019-09-17 12:49] VITALS: BP 126/57
[2019-09-17 12:53] VITALS: Ht 157.5 cm; Wt 81.6 kg
[2019-09-17] MEDS ORDERED: ALDACTONE50 MG PO (13:07)
--- NOTE | 2019-09-17 13:30 | NUR ---
REVIEWED DISCHARGE INSTRUCTIONS WITH PT AND BOTH STATE UNDERSTANDING COPY GIVEN DCD SALINE LOCKS TO LFA /LT WRIST WITH IV CATHETERS INTACT SITES FREE OF REDNESS OR EDEMA PT DISCHARGED HOME LEFT UNIT VIA W/C WITH ALL PERSONAL BELONGINGS IN STABLE CONDITION
--- NOTE | 2019-09-17 17:06 | MORECARE ---
CASE MANAGEMENT DISCHARGE SUMMARY PATIENT: MAXIMO TIPTON UNIT: [id number] ADM DATE: 09/16/19 AGE: 83 : 36 SEX: F ROOM/BED: D.0081 AUTHOR: [place] PHYSICIAN: REFERRING PHYSICIAN: STANTON LOPEZ MD DATE OF SERVICE: 09/17/19 Discharge Plan Patient Name: MAXIMO TIPTON [facility] [facility] 1935 Planned Disposition: Anticipated Discharge Date: Discharge Date: 09/17/2019 Expected LOS: 0 Initial Reviewer: [email or web address] Initial Review Date: 09/17/2019 Generated: 09/17/19 6:05 pm Coverage Notice Reviewer: [email or web address] Christina Thorpe Notice Issued Date-Time: 09/17/2019 10:10 Notice Type: Medicare Outpatient Observation Notice Notice Delivered To: Patient Relationship to Patient: Brake Operator Sheet Metal Name: Delivery Method: HAND - Hand Delivered Blaire Days: Prior Verbal Notification: Recipient Understood Notice: Yes Recipient Signature: Yes Med Rec Note Co-signed by Attending: Coverage Notice Comment: JONES SERVED, EXPLAINED, AND SIGNED BY PATIENT. THE ORIGINAL WAS PROVIDED TO THE PATIENT AND COPY PLACED ON CHART. Patient Name: MAXIMO TIPTON Page [phone] at 1706 All edits/amendments must be made on the electronic document DICTATION DATE: 09/17/19 170 HOUSEKEEPING SUPERVISOR HOTEL: MICHEL 09/17/19 170 RPT#: [id number] DC DATE:09/17/19 STATUS: DIS IN [facility] [address] [place] [address] END OF REPORT
== END 2019-09-17 13:30 | disposition home or self-care (01) | DRG 287 ==
LOC: D.M2 15:10
PROVIDERS: ADMIT Internal Medicine Interventional Cardiology; ATTEND Internal Medicine Interventional Cardiology
PROC: B2111ZZ Fluoroscopy of Multiple Coronary Arteries using Low Osmolar Contrast (ICD-10-PCS; principal; 2019-09-16)
PROC: B2151ZZ Fluoroscopy of Left Heart using Low Osmolar Contrast (ICD-10-PCS; 2019-09-16)
PROC: 4A023N7 Measurement of Cardiac Sampling and Pressure, Left Heart, Percutaneous Approach (ICD-10-PCS; 2019-09-16)
DX: I24.9 Acute ischemic heart disease, unspecified (principal); I42.9 Cardiomyopathy, unspecified; E11.9 Type 2 diabetes mellitus without complications; I10 Essential (primary) hypertension; K21.9 Gastro-esophageal reflux disease without esophagitis

== ENCOUNTER → 2019-10-12 08:39 | Outpatient (CLI) | payer MEDICARE ==
[2019-09-17 12:53] VITALS: BMI 32.9
--- NOTE | ~2019-10-12 | EC ---
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 Ao 98 cm/sec RVOT 79 cm/sec RA cm/sec PA 83 cm/sec AV Gradient Peak 3.81 mmHg AV Mean 2.0 mmHg AV Area 1.9 cm MV Gradient Peak 6.42 mmHg MV Mean 2.23 mmHg MV Area cm COMMENTS: Lead Assembler: 2 BRYAN PA Tool Technician: 3 Dr. Ceja TAPE# PACS Pericardial Effusion N DATE OF SERVICE: 10/12/2019 Adequate 2D, color flow imaging, spectral Doppler, and M-Mode. Borderline LVH. LV internal dimensions are normal. LV is mildly globally hypo. EF reduced, 35% to 40%. Aortic valve is sclerosed without evidence of stenosis by Doppler interrogation. Left atrium normal at 3.5 cm. Mitral valve shows no prolapse. Trace MR. Right-sided chambers are grossly normal. Mild TR. [id number] Voice Confirmation ID: [id number] DOCUMENT ID: [id number] ECHOCARDIOGRAM REPORT [id number] MAXIMO TIPTON GREGORY A MD CC: [id number] DICTATION DATE: 10/13/19 1230 CORPORATE AIRCRAFT MECHANIC: 10/13/192230 DEP CLI 10/12/19 [address] [place] [address]
[~2019-10-12 08:39] MED LIST changes: +ALDACTONE50 MG PO; +LANTUS INS100 UNITS/ SC
== END | disposition home or self-care (01) ==
LOC: D.HCCECHO 08:39
PROVIDERS: ATTEND Internal Medicine Interventional Cardiology
DX: I25.10 Atherosclerotic heart disease of native coronary artery without angina pectoris (principal)